=== PATIENT | male | born 1950 | race Caucasian/White ===

== ENCOUNTER 2022-05-06 13:42 | Emergency (ER) | payer MEDICARE, SELFPAY ==
[2022-05-06 13:48] VITALS: BP 150/95; PULSE 83; RESP 18; TEMP 35.9; O2SAT 97; BMI 22.4
--- NOTE | 2022-05-06 13:48 | ED.PSYCH ---
HPI - Psych General Chief Complaint: Psychiatric Symptoms <MYRTLE Vargas - Last Filed: 05/06/22 13:52> Stated Complaint: Depression <MYRTLE Vargas - Last Filed: 05/06/22 13:52> Time Seen by Provider: 05/06/22 14:57 <MYRTLE Vargas Last Filed: 05/06/22 13:52> Source: patient and family () <MYRTLE Doty Last Filed: 05/06/22 17:34> Mode of arrival: ambulatory <MYRTLE Doty - Last Filed: 05/06/22 17:34> Limitations: no limitations <MYRTLE Doty Last Filed: 05/06/22 17:34> History of Present Illness HPI Narrative: Patient is a 71 year old assigned male at with a history of bipolar disorder and major depression presenting to the emergency department today with worsening depression. Patient states that he doesn't currently feel suicidal or homicidal but does feel markedly depressed. Patient states that this happened once before in 2014 and that required admission. Patient denies any dizziness, lightheadedness, abdominal pain, nausea, vomiting, fever, chills, blurry vision, double vision, loss of vision, chest pain, difficulty breathing, shortness of breath, back pain, night sweats, pain with urination, increased urinary frequency, increased urinary urgency, blood in his urine or stool, syncope or a near syncopal episode, recent trauma or falls, bowel incontinence, bladder incontinence, bowel retention, bladder retention, or any other complaints at this time. <MYRTLE Doty - Last Filed: 05/06/22 17:34> MD complaint: feels depressed <MYRTLE Doty - Last Filed: 05/06/22 17:34> Onset (ago): day(s) <MYRTLE Doty Last Filed: 05/06/22 17:34> Duration: constant <MYRTLE Doty Last Filed: 05/06/22 17:34> History of same: Yes <MYRTLE Doty Last Filed: 05/06/22 17:34> Relieving factors: none <MYRTLE Doty Last Filed: 05/06/22 17:34> Exacerbating factors: none <MYRTLE Doty Last Filed: 05/06/22 17:34> Associated psychiatric symptoms: depression <MYRTLE Doty Last Filed: 05/06/22 17:34> Associated symptoms: denies other symptoms <MYRTLE Doty Last Filed: 05/06/22 17:34> Treatments prior to arrival: none <MYRTLE Doty Last Filed: 05/06/22 17:34> Related Data Home Medications: Home Medications Medication Instructions Recorded Confirmed bupropion HCl 150 mg 24 hr tablet, 450 mg PO QAM 05/06/22 05/06/22 extended release ergocalciferol (vitamin D2) 1,250 1,250 mcg PO QWEEK 05/06/22 05/06/22 mcg (50,000 unit) capsule (Vitamin D2) folic acid 1 mg tablet 1 mg PO DAILY 05/06/22 05/06/22 lorazepam 0.5 mg tablet 0.5 mg PO BEDTIME 05/06/22 05/06/22 omeprazole 20 mg capsule,delayed 20 mg PO DAILY 05/06/22 05/06/22 release sertraline 25 mg tablet 25 mg PO DAILY 05/06/22 05/06/22 sildenafil 100 mg tablet 100 mg PO DAILY PRN Erectile 05/06/22 05/06/22 Dysfunction <MYRTLE Vargas - Last Filed: 05/06/22 13:52> Allergies/Adverse Reactions: Allergies Allergy/AdvReac Type Severity Reaction Status Date / Time No Known Allergies Allergy Verified 05/06/22 13:51 [No Known Allergies*] <MYRTLE Vargas - Last Filed: 05/06/22 13:52> Review of Systems Constitutional: Constitutional: Reports no additional constitutional complaints, Denies chills, Denies fever(s) and Denies night sweats <MYRTLE Doty Last Filed: 05/06/22 17:34> Eyes: Eyes: Reports no additional eye complaints, Denies blurry vision, Denies change in vision, Denies diplopia, Denies eye discharge, Denies loss of vision and Denies eye pain <MYRTLE Doty Last Filed: 05/06/22 17:34> ENT: Denies dizziness <MYRTLE Doty - Last Filed: 05/06/22 17:34> Cardiovascular: Cardiovascular: Reports no additional cardiovascular complaints, Denies chest pain, Denies lightheadedness, Denies Loss of Consciousness and Denies dyspnea <MYRTLE Doty - Last Filed: 05/06/22 17:34> Respiratory: Respiratory: Reports no additional respiratory complaints and Denies dyspnea <MYRTLE Doty - Last Filed: 05/06/22 17:34> Gastrointestinal: Gastrointestinal: Reports no additional gastrointestinal complaints, Denies abdominal pain, Denies melena, Denies hematochezia, Denies change in bowel habits and Denies change in stool character <MYRTLE Doty - Last Filed: 05/06/22 17:34> Genitourinary: Genitourinary: Reports no additional male genitourinary complaints, Denies hematuria, Denies oliguria, Denies difficulty urinating, Denies dysuria, Denies urinary frequency, Denies urinary hesitancy, Denies urinary incontinence and Denies urinary urgency <MYRTLE Doty - Last Filed: 05/06/22 17:34> Musculoskeletal: Musculoskeletal: Reports no additional musculoskeletal complaints, Denies numbness and Denies tingling <MYRTLE Doty - Last Filed: 05/06/22 17:34> Neurologic: Denies dizziness, Denies loss of vision, Denies numbness and Denies tingling <MYRTLE Doty - Last Filed: 05/06/22 17:34> Psychiatric: Psychiatric: Reports no additional psychiatric complaints and Reports depression <MYRTLE Doty - Last Filed: 05/06/22 17:34> Endocrine: Endocrine: Reports no additional endocrine complaints <MYRTLE Doty - Last Filed: 05/06/22 17:34> Hematologic/Lymphatic: Hematologic/Lymphatic: Reports no additional hematologic/lymphatic complaints <MYRTLE Doty - Last Filed: 05/06/22 17:34> Allergic/Immunologic: Allergic/Immunologic: Reports no additional allergic/immunologic complaints <MYRTLE Doty - Last Filed: 05/06/22 17:34> PMFSH Past Medical History Attestation statement: The following information was validated with the patient. <MYRTLE Doty - Last Filed: 05/06/22 17:34> Source: old records reviewed, obtained from family (patient's ) and nursing notes reviewed <MYRTLE Doty - Last Filed: 05/06/22 17:34> Social History Social History: Social History Advance Directives: No Advance Directives Information Provided: No Healthcare Proxy: No Guardian: No <MYRTLE Vargas - Last Filed: 05/06/22 13:52> Physical Exam Vital Signs: Vital Signs: Last Vital Signs Temp 96.6 F L 05/06/22 13:48 Pulse 83 05/06/22 13:48 Resp 18 05/06/22 13:48 BP 150/95 H 05/06/22 13:48 Pulse Ox 97 05/06/22 13:48 O2 Del Method Room Air 05/06/22 13:48 BMI result Body Mass Index 22.4 <MYRTLE Vargas - Last Filed: 05/06/22 13:52> Vital Signs: Last Vital Signs Temp 96.6 F L 05/06/22 13:48 Pulse 83 05/06/22 13:48 Resp 18 05/06/22 13:48 BP 150/95 H 05/06/22 13:48 Pulse Ox 97 05/06/22 13:48 O2 Del Method Room Air 05/06/22 13:48 BMI result Body Mass Index 22.4 <MYRTLE Doty - Last Filed: 05/06/22 17:34> Vital Signs: Last Vital Signs Temp 96.6 F L 05/06/22 13:48 Pulse 83 05/06/22 13:48 Resp 18 05/06/22 13:48 BP 150/95 H 05/06/22 13:48 Pulse Ox 97 05/06/22 13:48 O2 Del Method Room Air 05/06/22 13:48 BMI result Body Mass Index 22.4 <Osiel Vazquez MD - Last Filed: 05/06/22 19:57> Const: General: cooperative, no acute distress, alert and awake <MYRTLE Doty - Last Filed: 05/06/22 17:34> Nutritional Appearance: well nourished <MYRTLE Doty - Last Filed: 05/06/22 17:34> Orientation/consciousness: patient oriented x3 <Ryann Wilder AL - Last Filed: 05/06/22 17:34> Limitations: no limitations <Ryann Wilder AL - Last Filed: 05/06/22 17:34> HEENT: Head: Yes normal to inspection and Yes atraumatic <Ryann Wilder AL - Last Filed: 05/06/22 17:34> Ears: hearing grossly normal bilaterally and external ears normal <Ryann Wilder AL - Last Filed: 05/06/22 17:34> General nose exam: Normal external nose present, no nasal discharge noted and no epistaxis <Ryann Wilder AL - Last Filed: 05/06/22 17:34> Face and sinus: Yes normal facial exam, No abrasion and No laceration <Ryann Wilder AL - Last Filed: 05/06/22 17:34> Mouth: Normal oral and palatal mucosa present, no drooling and no muffled voice <Ryann Wilder AL - Last Filed: 05/06/22 17:34> Eyes: General: appearance normal, both eyes and all related structures <Ryann Wilder AL - Last Filed: 05/06/22 17:34> Periorbital: periorbital findings normal <Ryann Wilder AL - Last Filed: 05/06/22 17:34> Eyelids: Yes eyelids normal <Ryann Wilder AL - Last Filed: 05/06/22 17:34> Conjunctivae: conjunctivae normal <Ryann Wilder AL - Last Filed: 05/06/22 17:34> Pupils: Equal, round and reactive pupils present <Ryann Wilder AL - Last Filed: 05/06/22 17:34> EOM: EOMs intact bilaterally <Ryann Briggsmaggie AL - Last Filed: 05/06/22 17:34> Neck: Neck: Yes normal visual inspection, Yes full ROM and Yes no lymphadenopathy <Ryann Wilder AL - Last Filed: 05/06/22 17:34> Chest: Chest palpation & inspection: normal inspection of the chest <Ryannangelique Briggsmaggie AL - Last Filed: 05/06/22 17:34> Resp: Effort & Inspection: normal respiratory effort and able to speak in complete sentences <Ryann Wilder PA - Last Filed: 05/06/22 17:34> GI: Inspection: Yes normal to inspection <Ryann WilderMYRTLE - Last Filed: 05/06/22 17:34> Neuro: General: patient oriented x3 and moves all extremities <Ryann Wilder PA - Last Filed: 05/06/22 17:34> Cranial nerves: Yes Equal, round and reactive pupils present <Ryann Wilder PA - Last Filed: 05/06/22 17:34> Cognition (Neuro): normal cognition <Ryann Wilder PA - Last Filed: 05/06/22 17:34> Motor exam (neuro): 5/5 motor strength present throughout <Ryann Wilder PA - Last Filed: 05/06/22 17:34> Sensory Exam: Normal double simultaneous stimulation for sensation <Ryann Wilder PA - Last Filed: 05/06/22 17:34> Coordination: [id number] test normal <Ryann Wilder PA - Last Filed: 05/06/22 17:34> Extrem: General: Yes normal to inspection, Yes full ROM and Yes capillary refill normal <Ryann Wilder PA - Last Filed: 05/06/22 17:34> Psych: Appearance: grossly normal <Ryann WilderMYRTLE - Last Filed: 05/06/22 17:34> Mental Status: mental status grossly normal <Ryann Wilder PA - Last Filed: 05/06/22 17:34> Affect: normal affect <Ryann BriggsMYRTLE serrano - Last Filed: 05/06/22 17:34> Attitude: cooperative <Ryann Briggsmaggie PA - Last Filed: 05/06/22 17:34> Thought process: Normal thought process present <Ryann Briggsmaggie PA - Last Filed: 05/06/22 17:34> Thought content: Normal thought content present <Ryann BriggsMYRTLE serrano - Last Filed: 05/06/22 17:34> Insight: Good insight present (Psych) <Ryann BriggsMYRTLE serrano - Last Filed: 05/06/22 17:34> Course Course Course Narrative: RME - 71 yo male with history of bipolar disorder, major depression, who presents to the ER from home with his for worsening depression for the last 3 days. He was admitted here to in 2014. He feels similar to that episodes but is denying any suicidal thoughts at this time. He admits to feeling desperate. No drug or alcohol use. PCP manages his depression, has no therapist or psychiatrist. Plan: labs and crisis evaluation <MYRTLE Vargas - Last Filed: 05/06/22 13:52> Reevaluation(s) Reevaluation #1: The patient was evaluated by our care team. The patient is depressed and just wants a medication adjustment. Denied being suicidal or homicidal. At this point he wants to go home and discuss further medical treatment with his provider's therefore the patient was discharged home. Patient's is also with him and according to the care team, his is comfortable with this discharge plan. <Osiel Vazquez MD - Last Filed: 05/06/22 19:57> Time: 19:55 <Osiel Vazquez MD - Last Filed: 05/06/22 19:57> Medical Decision Making Medical Decision Making [facility] Narrative: Patient is a 71 year old assigned male at with a history of bipolar disorder and major depression presenting to the emergency department today with worsening depression. Patient's physical exam was unremarkable. Patient's blood work was unremarkable. I explained my physical exam findings as well as all test results to the patient and the patient's . I answered all questions asked by the patient and the patient's . Patient is pending evaluation by a behavioral health specialist at this time. Patient to remain in the department with disposition pending behavioral health evaluation. <MYRTLE Doty - Last Filed: 05/06/22 17:34> Differential Diagnosis Differential Diagnoses: The differential diagnosis associated with the presentation includes <MYRTLE Doty - Last Filed: 05/06/22 17:34> depression <MYRTLE Doty - Last Filed: 05/06/22 17:34> Lab Data [facility] Lab Attestation statement: I reviewed the patient's lab results. <MYRTLE Doty - Last Filed: 05/06/22 17:34> Result Diagrams: 05/06/22 15:11 05/06/22 15:11 <MYRTLE Vargas - Last Filed: 05/06/22 13:52> Labs: Lab Results 05/06/22 05/06/22 05/06/22 Range/Units 15:05 15:05 15:11 WBC 5.8 (4.8-10.8) X10*3/uL RBC 5.22 (4.60-5.80) X10*6/uL Hgb 15.5 (14.0-18.0) g/dl Hct 47.3 (42.0-52.0) % MCV 90.6 (80.0-98.0) fL MCH 29.7 (27.0-33.0) pg MCHC 32.8 (31.0-36.0) g/dl RDW 13.0 (11.0-16.0) % Plt Count 215 (160-400) X10*3/uL MPV 9.4 (9.4-12.4) fL Immature Gran % (Auto) 0.3 (0.0-0.4) % Neut % (Auto) 63.8 (45-73) % Lymph % (Auto) 23.5 (20-40) % [place] % (Auto) 9.4 (2-11) % Eos % (Auto) 2.1 (0-4) % Baso % (Auto) 0.9 (0-2) % Lymph # (Auto) 1.4 (1.2-4.9) X10*3/uL [place] # (Auto) 0.5 (0.1-1.2) X10*3/uL Eos # (Auto) 0.1 (0.0-0.4) X10*3/uL Baso # (Auto) 0.1 (0.0-0.2) X10*3/uL Abs Immat Gran (auto) 0.02 (0.00-0.03) X10*3/uL Absolute Neuts (auto) 3.7 (2.0-8.3) x10*3/uL Absolute Nucleated RBC 0.000 (0.0-0.012) X10*3/uL Nucleated RBC % (auto) 0.0 (0.0-0.2) /100WBC Sodium (135-145) mmol/L Potassium (3.3-5.1) mmol/L Chloride (96-108) mmol/L Carbon Dioxide (22-29) mmol/L Anion Gap (12-20) BUN (9-16) mg/dL Creatinine (0.5-1.4) mg/dL Estim Creat Clear Calc Estimated GFR Random Glucose (60-115) mg/dL Calcium (8.4-10.2) mg/dL Magnesium (1.6-2.6) mg/dL Total Bilirubin (0.0-1.0) mg/dL Direct Bilirubin (0.0-0.5) mg/dL AST (5-37) U/L ALT (0-40) U/L Alkaline Phosphatase (39-117) U/L Total Protein (6.5-8.0) g/dL Albumin (3.5-5.0) g/dL Urine Color Yellow Urine Appearance Clear Urine pH 7.0 (5.0-9.0) Ur Specific [place] 1.020 (1.005-1.025) Urine Protein 30 (1+) H (Neg-Trace) mg/dL Urine Glucose (UA) Negative (Negative) mg/dL Urine Ketones 40 (Negative) mg/dL Urine Blood Negative (Negative) Urine Nitrite Negative (Negative) Ur Leukocyte Esterase Trace H (Negative) Urine RBC 0-2 (0-2) /HPF Urine WBC 0-5 (0-5) /HPF Ur Squamous Epith Cells 0-2 (0-2) /HPF Urine Bacteria None Seen (None Seen) Hyaline Casts 0-2 (0-2) /LPF Urine Opiates Screen Not Detected (Not Detect) Urine Fentanyl Screen Not Detected (Not Detect) Ur Barbiturates Screen Not Detected (Not Detect) Ur Phencyclidine Scrn Not Detected (Not Detect) Ur Amphetamines Screen Not Detected (Not Detect) U Benzodiazepines Scrn Not Detected (Not Detect) Urine Cocaine Screen Not Detected (Not Detect) U Marijuana (THC) Screen POSITIVE H (Not Detect) Ethyl Alcohol mg/dL COVID-19 (JULY) (Negative) COVID-19 Clin Com 05/06/22 05/06/22 Range/Units 15:11 15:11 WBC (4.8-10.8) X10*3/uL RBC (4.60-5.80) X10*6/uL Hgb (14.0-18.0) g/dl Hct (42.0-52.0) % MCV (80.0-98.0) fL MCH (27.0-33.0) pg MCHC (31.0-36.0) g/dl RDW (11.0-16.0) % Plt Count (160-400) X10*3/uL MPV (9.4-12.4) fL Immature Gran % (Auto) (0.0-0.4) % Neut % (Auto) (45-73) % Lymph % (Auto) (20-40) % [place] % (Auto) (2-11) % Eos % (Auto) (0-4) % Baso % (Auto) (0-2) % Lymph # (Auto) (1.2-4.9) X10*3/uL [place] # (Auto) (0.1-1.2) X10*3/uL Eos # (Auto) (0.0-0.4) X10*3/uL Baso # (Auto) (0.0-0.2) X10*3/uL Abs Immat Gran (auto) (0.00-0.03) X10*3/uL Absolute Neuts (auto) (2.0-8.3) x10*3/uL Absolute Nucleated RBC (0.0-0.012) X10*3/uL Nucleated RBC % (auto) (0.0-0.2) /100WBC Sodium 141 (135-145) mmol/L Potassium 4.4 (3.3-5.1) mmol/L Chloride 105 (96-108) mmol/L Carbon Dioxide 26 (22-29) mmol/L Anion Gap 14 (12-20) BUN 13 (9-16) mg/dL Creatinine 0.99 (0.5-1.4) mg/dL Estim Creat Clear Calc 74.6 Estimated GFR > 60 Random Glucose 86 (60-115) mg/dL Calcium 9.5 (8.4-10.2) mg/dL Magnesium 2.0 (1.6-2.6) mg/dL Total Bilirubin 1.5 H (0.0-1.0) mg/dL Direct Bilirubin 0.3 (0.0-0.5) mg/dL AST 22 (5-37) U/L ALT 26 (0-40) U/L Alkaline Phosphatase 64 (39-117) U/L Total Protein 6.9 (6.5-8.0) g/dL Albumin 4.5 (3.5-5.0) g/dL Urine Color Urine Appearance Urine pH (5.0-9.0) Ur Specific [place] (1.005-1.025) Urine Protein (Neg-Trace) mg/dL Urine Glucose (UA) (Negative) mg/dL Urine Ketones (Negative) mg/dL Urine Blood (Negative) Urine Nitrite (Negative) Ur Leukocyte Esterase (Negative) Urine RBC (0-2) /HPF Urine WBC (0-5) /HPF Ur Squamous Epith Cells (0-2) /HPF Urine Bacteria (None Seen) Hyaline Casts (0-2) /LPF Urine Opiates Screen (Not Detect) Urine Fentanyl Screen (Not Detect) Ur Barbiturates Screen (Not Detect) Ur Phencyclidine Scrn (Not Detect) Ur Amphetamines Screen (Not Detect) U Benzodiazepines Scrn (Not Detect) Urine Cocaine Screen (Not Detect) U Marijuana (THC) Screen (Not Detect) Ethyl Alcohol < 10 mg/dL COVID-19 (JULY) Negative (Negative) COVID-19 Clin Com See Note <MYRTLE Vargas - Last Filed: 05/06/22 13:52> Lab Results 05/06/22 05/06/22 05/06/22 Range/Units 15:05 15:05 15:11 WBC 5.8 (4.8-10.8) X10*3/uL RBC 5.22 (4.60-5.80) X10*6/uL Hgb 15.5 (14.0-18.0) g/dl Hct 47.3 (42.0-52.0) % MCV 90.6 (80.0-98.0) fL MCH 29.7 (27.0-33.0) pg MCHC 32.8 (31.0-36.0) g/dl RDW 13.0 (11.0-16.0) % Plt Count 215 (160-400) X10*3/uL MPV 9.4 (9.4-12.4) fL Immature Gran % (Auto) 0.3 (0.0-0.4) % Neut % (Auto) 63.8 (45-73) % Lymph % (Auto) 23.5 (20-40) % [place] % (Auto) 9.4 (2-11) % Eos % (Auto) 2.1 (0-4) % Baso % (Auto) 0.9 (0-2) % Lymph # (Auto) 1.4 (1.2-4.9) X10*3/uL [place] # (Auto) 0.5 (0.1-1.2) X10*3/uL Eos # (Auto) 0.1 (0.0-0.4) X10*3/uL Baso # (Auto) 0.1 (0.0-0.2) X10*3/uL Abs Immat Gran (auto) 0.02 (0.00-0.03) X10*3/uL Absolute Neuts (auto) 3.7 (2.0-8.3) x10*3/uL Absolute Nucleated RBC 0.000 (0.0-0.012) X10*3/uL Nucleated RBC % (auto) 0.0 (0.0-0.2) /100WBC Sodium (135-145) mmol/L Potassium (3.3-5.1) mmol/L Chloride (96-108) mmol/L Carbon Dioxide (22-29) mmol/L Anion Gap (12-20) BUN (9-16) mg/dL Creatinine (0.5-1.4) mg/dL Estim Creat Clear Calc Estimated GFR Random Glucose (60-115) mg/dL Calcium (8.4-10.2) mg/dL Magnesium (1.6-2.6) mg/dL Total Bilirubin (0.0-1.0) mg/dL Direct Bilirubin (0.0-0.5) mg/dL AST (5-37) U/L ALT (0-40) U/L Alkaline Phosphatase (39-117) U/L Total Protein (6.5-8.0) g/dL Albumin (3.5-5.0) g/dL Urine Color Yellow Urine Appearance Clear Urine pH 7.0 (5.0-9.0) Ur Specific [place] 1.020 (1.005-1.025) Urine Protein 30 (1+) H (Neg-Trace) mg/dL Urine Glucose (UA) Negative (Negative) mg/dL Urine Ketones 40 (Negative) mg/dL Urine Blood Negative (Negative) Urine Nitrite Negative (Negative) Ur Leukocyte Esterase Trace H (Negative) Urine RBC 0-2 (0-2) /HPF Urine WBC 0-5 (0-5) /HPF Ur Squamous Epith Cells 0-2 (0-2) /HPF Urine Bacteria None Seen (None Seen) Hyaline Casts 0-2 (0-2) /LPF Urine Opiates Screen Not Detected (Not Detect) Urine Fentanyl Screen Not Detected (Not Detect) Ur Barbiturates Screen Not Detected (Not Detect) Ur Phencyclidine Scrn Not Detected (Not Detect) Ur Amphetamines Screen Not Detected (Not Detect) U Benzodiazepines Scrn Not Detected (Not Detect) Urine Cocaine Screen Not Detected (Not Detect) U Marijuana (THC) Screen POSITIVE H (Not Detect) Ethyl Alcohol mg/dL COVID-19 (JULY) (Negative) COVID-19 Clin Com 05/06/22 05/06/22 Range/Units 15:11 15:11 WBC (4.8-10.8) X10*3/uL RBC (4.60-5.80) X10*6/uL Hgb (14.0-18.0) g/dl Hct (42.0-52.0) % MCV (80.0-98.0) fL MCH (27.0-33.0) pg MCHC (31.0-36.0) g/dl RDW (11.0-16.0) % Plt Count (160-400) X10*3/uL MPV (9.4-12.4) fL Immature Gran % (Auto) (0.0-0.4) % Neut % (Auto) (45-73) % Lymph % (Auto) (20-40) % [place] % (Auto) (2-11) % Eos % (Auto) (0-4) % Baso % (Auto) (0-2) % Lymph # (Auto) (1.2-4.9) X10*3/uL [place] # (Auto) (0.1-1.2) X10*3/uL Eos # (Auto) (0.0-0.4) X10*3/uL Baso # (Auto) (0.0-0.2) X10*3/uL Abs Immat Gran (auto) (0.00-0.03) X10*3/uL Absolute Neuts (auto) (2.0-8.3) x10*3/uL Absolute Nucleated RBC (0.0-0.012) X10*3/uL Nucleated RBC % (auto) (0.0-0.2) /100WBC Sodium 141 (135-145) mmol/L Potassium 4.4 (3.3-5.1) mmol/L Chloride 105 (96-108) mmol/L Carbon Dioxide 26 (22-29) mmol/L Anion Gap 14 (12-20) BUN 13 (9-16) mg/dL Creatinine 0.99 (0.5-1.4) mg/dL Estim Creat Clear Calc 74.6 Estimated GFR > 60 Random Glucose 86 (60-115) mg/dL Calcium 9.5 (8.4-10.2) mg/dL Magnesium 2.0 (1.6-2.6) mg/dL Total Bilirubin 1.5 H (0.0-1.0) mg/dL Direct Bilirubin 0.3 (0.0-0.5) mg/dL AST 22 (5-37) U/L ALT 26 (0-40) U/L Alkaline Phosphatase 64 (39-117) U/L Total Protein 6.9 (6.5-8.0) g/dL Albumin 4.5 (3.5-5.0) g/dL Urine Color Urine Appearance Urine pH (5.0-9.0) Ur Specific [place] (1.005-1.025) Urine Protein (Neg-Trace) mg/dL Urine Glucose (UA) (Negative) mg/dL Urine Ketones (Negative) mg/dL Urine Blood (Negative) Urine Nitrite (Negative) Ur Leukocyte Esterase (Negative) Urine RBC (0-2) /HPF Urine WBC (0-5) /HPF Ur Squamous Epith Cells (0-2) /HPF Urine Bacteria (None Seen) Hyaline Casts (0-2) /LPF Urine Opiates Screen (Not Detect) Urine Fentanyl Screen (Not Detect) Ur Barbiturates Screen (Not Detect) Ur Phencyclidine Scrn (Not Detect) Ur Amphetamines Screen (Not Detect) U Benzodiazepines Scrn (Not Detect) Urine Cocaine Screen (Not Detect) U Marijuana (THC) Screen (Not Detect) Ethyl Alcohol < 10 mg/dL COVID-19 (JULY) Negative (Negative) COVID-19 Clin Com See Note <MYRTLE Doty - Last Filed: 05/06/22 17:34> Lab Results 05/06/22 05/06/22 05/06/22 Range/Units 15:05 15:05 15:11 WBC 5.8 (4.8-10.8) X10*3/uL RBC 5.22 (4.60-5.80) X10*6/uL Hgb 15.5 (14.0-18.0) g/dl Hct 47.3 (42.0-52.0) % MCV 90.6 (80.0-98.0) fL MCH 29.7 (27.0-33.0) pg MCHC 32.8 (31.0-36.0) g/dl RDW 13.0 (11.0-16.0) % Plt Count 215 (160-400) X10*3/uL MPV 9.4 (9.4-12.4) fL Immature Gran % (Auto) 0.3 (0.0-0.4) % Neut % (Auto) 63.8 (45-73) % Lymph % (Auto) 23.5 (20-40) % [place] % (Auto) 9.4 (2-11) % Eos % (Auto) 2.1 (0-4) % Baso % (Auto) 0.9 (0-2) % Lymph # (Auto) 1.4 (1.2-4.9) X10*3/uL [place] # (Auto) 0.5 (0.1-1.2) X10*3/uL Eos # (Auto) 0.1 (0.0-0.4) X10*3/uL Baso # (Auto) 0.1 (0.0-0.2) X10*3/uL Abs Immat Gran (auto) 0.02 (0.00-0.03) X10*3/uL Absolute Neuts (auto) 3.7 (2.0-8.3) x10*3/uL Absolute Nucleated RBC 0.000 (0.0-0.012) X10*3/uL Nucleated RBC % (auto) 0.0 (0.0-0.2) /100WBC Sodium (135-145) mmol/L Potassium (3.3-5.1) mmol/L Chloride (96-108) mmol/L Carbon Dioxide (22-29) mmol/L Anion Gap (12-20) BUN (9-16) mg/dL Creatinine (0.5-1.4) mg/dL Estim Creat Clear Calc Estimated GFR Random Glucose (60-115) mg/dL Calcium (8.4-10.2) mg/dL Magnesium (1.6-2.6) mg/dL Total Bilirubin (0.0-1.0) mg/dL Direct Bilirubin (0.0-0.5) mg/dL AST (5-37) U/L ALT (0-40) U/L Alkaline Phosphatase (39-117) U/L Total Protein (6.5-8.0) g/dL Albumin (3.5-5.0) g/dL Urine Color Yellow Urine Appearance Clear Urine pH 7.0 (5.0-9.0) Ur Specific [place] 1.020 (1.005-1.025) Urine Protein 30 (1+) H (Neg-Trace) mg/dL Urine Glucose (UA) Negative (Negative) mg/dL Urine Ketones 40 (Negative) mg/dL Urine Blood Negative (Negative) Urine Nitrite Negative (Negative) Ur Leukocyte Esterase Trace H (Negative) Urine RBC 0-2 (0-2) /HPF Urine WBC 0-5 (0-5) /HPF Ur Squamous Epith Cells 0-2 (0-2) /HPF Urine Bacteria None Seen (None Seen) Hyaline Casts 0-2 (0-2) /LPF Urine Opiates Screen Not Detected (Not Detect) Urine Fentanyl Screen Not Detected (Not Detect) Ur Barbiturates Screen Not Detected (Not Detect) Ur Phencyclidine Scrn Not Detected (Not Detect) Ur Amphetamines Screen Not Detected (Not Detect) U Benzodiazepines Scrn Not Detected (Not Detect) Urine Cocaine Screen Not Detected (Not Detect) U Marijuana (THC) Screen POSITIVE H (Not Detect) Ethyl Alcohol mg/dL COVID-19 (JULY) (Negative) COVID-19 Clin Com 05/06/22 05/06/22 Range/Units 15:11 15:11 WBC (4.8-10.8) X10*3/uL RBC (4.60-5.80) X10*6/uL Hgb (14.0-18.0) g/dl Hct (42.0-52.0) % MCV (80.0-98.0) fL MCH (27.0-33.0) pg MCHC (31.0-36.0) g/dl RDW (11.0-16.0) % Plt Count (160-400) X10*3/uL MPV (9.4-12.4) fL Immature Gran % (Auto) (0.0-0.4) % Neut % (Auto) (45-73) % Lymph % (Auto) (20-40) % [place] % (Auto) (2-11) % Eos % (Auto) (0-4) % Baso % (Auto) (0-2) % Lymph # (Auto) (1.2-4.9) X10*3/uL [place] # (Auto) (0.1-1.2) X10*3/uL Eos # (Auto) (0.0-0.4) X10*3/uL Baso # (Auto) (0.0-0.2) X10*3/uL Abs Immat Gran (auto) (0.00-0.03) X10*3/uL Absolute Neuts (auto) (2.0-8.3) x10*3/uL Absolute Nucleated RBC (0.0-0.012) X10*3/uL Nucleated RBC % (auto) (0.0-0.2) /100WBC Sodium 141 (135-145) mmol/L Potassium 4.4 (3.3-5.1) mmol/L Chloride 105 (96-108) mmol/L Carbon Dioxide 26 (22-29) mmol/L Anion Gap 14 (12-20) BUN 13 (9-16) mg/dL Creatinine 0.99 (0.5-1.4) mg/dL Estim Creat Clear Calc 74.6 Estimated GFR > 60 Random Glucose 86 (60-115) mg/dL Calcium 9.5 (8.4-10.2) mg/dL Magnesium 2.0 (1.6-2.6) mg/dL Total Bilirubin 1.5 H (0.0-1.0) mg/dL Direct Bilirubin 0.3 (0.0-0.5) mg/dL AST 22 (5-37) U/L ALT 26 (0-40) U/L Alkaline Phosphatase 64 (39-117) U/L Total Protein 6.9 (6.5-8.0) g/dL Albumin 4.5 (3.5-5.0) g/dL Urine Color Urine Appearance Urine pH (5.0-9.0) Ur Specific [place] (1.005-1.025) Urine Protein (Neg-Trace) mg/dL Urine Glucose (UA) (Negative) mg/dL Urine Ketones (Negative) mg/dL Urine Blood (Negative) Urine Nitrite (Negative) Ur Leukocyte Esterase (Negative) Urine RBC (0-2) /HPF Urine WBC (0-5) /HPF Ur Squamous Epith Cells (0-2) /HPF Urine Bacteria (None Seen) Hyaline Casts (0-2) /LPF Urine Opiates Screen (Not Detect) Urine Fentanyl Screen (Not Detect) Ur Barbiturates Screen (Not Detect) Ur Phencyclidine Scrn (Not Detect) Ur Amphetamines Screen (Not Detect) U Benzodiazepines Scrn (Not Detect) Urine Cocaine Screen (Not Detect) U Marijuana (THC) Screen (Not Detect) Ethyl Alcohol < 10 mg/dL COVID-19 (JULY) Negative (Negative) COVID-19 Clin Com See Note <Osiel Vazquez MD - Last Filed: 05/06/22 19:57> Independent Historian Clinical information obtained from an independent historian. History obtained from or confirmed by: Spouse () <MYRTLE Doty - Last Filed: 05/06/22 17:34> Critical Care Time Critical Care Time Critical Care Time: Yes <MYRTLE Doty - Last Filed: 05/06/22 17:34> Total Critical Care Time: 30 <MYRTLE Doty - Last Filed: 05/06/22 17:34> Attestation: I spent 30 minutes of Critical Care Time with this patient. This does not include time spent on separately reported billable procedures. <MYRTLE Doty - Last Filed: 05/06/22 17:34> Discharge Plan Discharge Clinical Impression: Depression <MYRTLE Vargas - Last Filed: 05/06/22 13:52> Patient Disposition: Home, Self-Care <MYRTLE Vargas - Last Filed: 05/06/22 13:52> Instructions: Depression (ED) <MYRTLE Vargas - Last Filed: 05/06/22 13:52> Additional Instructions: Your evaluated by our care team. Please follow their instructions. Continue taking medications as prescribed by your providers Follow-up with your doctor in 2 days or soon as possible to discuss adjusting your medications.. Please return to the emergency department if your symptoms get worse or if you develop any symptoms that are concerning to you. <MYRTLE Vargas - Last Filed: 05/06/22 13:52> Prescriptions: No Action sildenafil 100 mg tablet 100 mg PO DAILY PRN (Reason: Erectile Dysfunction) lorazepam 0.5 mg tablet 0.5 mg PO BEDTIME sertraline 25 mg tablet 25 mg PO DAILY omeprazole 20 mg capsule,delayed release(DR/EC) 20 mg PO DAILY folic acid 1 mg tablet 1 mg PO DAILY ergocalciferol (vitamin D2) [Vitamin D2] 1,250 mcg (50,000 unit) capsule 1,250 mcg PO QWEEK bupropion HCl 150 mg tablet extended release 24 hr 450 mg PO QAM <MYRTLE Vargas - Last Filed: 05/06/22 13:52> Interventions: [place]-Suicide Risk Severity Scale Last Done: 05/06/22 13:51 <MYRTLE Vargas - Last Filed: 05/06/22 13:52>
[2022-05-06 15:19] LABS: MANUAL DIFF FLAG NO
[2022-05-06 15:21] LABS: Basophils Absolute Auto 0.1 X10*3/uL (0.0-0.2); Basophils Percent Auto 0.9 % (0-2); Eosinophils Absolute Auto 0.1 X10*3/uL (0.0-0.4); Eosinophils Percent Auto 2.1 % (0-4); Hematocrit 47.3 % (42.0-52.0); Hemoglobin 15.5 g/dl (14.0-18.0); Imm Gran Abs Auto 0.02 X10*3/uL (0.00-0.03); Imm Gran Pct Auto 0.3 % (0.0-0.4); Lymphocytes Absolute Auto 1.4 X10*3/uL (1.2-4.9); Lymphocytes Percent Auto 23.5 % (20-40); Mean Corpuscular HGB Conc 32.8 g/dl (31.0-36.0); Mean Corpuscular Hemoglobin 29.7 pg (27.0-33.0); Mean Corpuscular Volume 90.6 fL (80.0-98.0); Mean Platelet Volume 9.4 fL (9.4-12.4); Monocytes Absolute Auto 0.5 X10*3/uL (0.1-1.2); Monocytes Percent Auto 9.4 % (2-11); Neutrophils Absolute Auto 3.7 x10*3/uL (2.0-8.3); Neutrophils Percent Auto 63.8 % (45-73); Platelet Count 215 X10*3/uL (160-400); Red Blood Count 5.22 X10*6/uL (4.60-5.80); White Blood Count 5.8 X10*3/uL (4.8-10.8)
[2022-05-06 15:24] LABS: Appearance Urine Clear; Color Urine Yellow; Glucose Urine UA Negative (Negative); Leukocyte Esterase Urine Trace (Negative); Nitrite Urine Negative (Negative); UMIC TRIGGER UACC YES; Urine Blood Negative (Negative); Urine Ketones 40 mg/dL (Negative); Urine Protein 30 (1+) mg/dL (Neg-Trace)
[2022-05-06 15:29] LABS: Bacteria Urine None Seen (None Seen); Hyaline Casts Urine 0-2 /LPF (0-2); RBC Urine 0-2 /HPF (0-2); Squamous Epithelial Cell Urine 0-2 /HPF (0-2); WBC Urine 0-5 /HPF (0-5)
[2022-05-06 15:34] LABS: Amphetamine Screen Urine Not Detected (Not Detect); Barbiturates, Urine Not Detected (Not Detect); Benzodiazepines Screen Urine Not Detected (Not Detect); Cannabinoid Screen Urine POSITIVE (Not Detect); Cocaine Screen Urine Not Detected (Not Detect); Fentanyl, urine Not Detected (Not Detect); Opiate Screen Urine Not Detected (Not Detect); Phencyclidine Screen Urine Not Detected (Not Detect)
[2022-05-06 15:37] LABS: COVID-19 Test Negative (Negative); IDNOW Serial# BCCEAD1C
[2022-05-06 15:42] LABS: Alanine Aminotransferase 26 U/L (0-40); Albumin Level 4.5 g/dL (3.5-5.0); Alkaline Phosphatase 64 U/L (39-117); Anion Gap 14 (12-20); Aspartate Amino Transferase 22 U/L (5-37); Bilirubin Direct 0.3 mg/dL (0.0-0.5); Bilirubin Total 1.5 mg/dL (0.0-1.0); Blood Urea Nitrogen 13 mg/dL (9-16); Calcium 9.5 mg/dL (8.4-10.2); Carbon Dioxide 26 mmol/L (22-29); Chloride 105 mmol/L (96-108); Creatinine Clr Calc Pharmacy 74.6; Estimated Glomerular Filt Rate > 60; Ethanol < 10 mg/dL; Glucose Random 86 mg/dL (60-115); Potassium 4.4 mmol/L (3.3-5.1); Sodium 141 mmol/L (135-145); Total Protein 6.9 g/dL (6.5-8.0)
--- NOTE | 2022-05-07 09:26 | MHC.CARE ---
CARE Team completed follow up call.
== END 2022-05-06 20:14 | disposition home or self-care (01) ==
PROVIDERS: Physician Assistant; Emergency Provider Emergency Medicine Emergency Medical Services; PCP Nurse Practitioner Family
DX: F33.1 Major depressive disorder, recurrent, moderate (principal); Z20.822 Contact with and (suspected) exposure to COVID-19; Z20.828 Contact with and (suspected) exposure to other viral communicable diseases; Z79.899 Other long term (current) drug therapy
CPT/HCPCS: 80048; 80076; 80307; 81001; 82077; 83735; 85025; 87635; 99284

== ENCOUNTER 2022-10-23 14:40 | Emergency (ER) | payer MEDICARE, SELFPAY ==
--- NOTE | ~2022-10-23 | XR_ITS ---
EXAMINATION: XR HAND, LEFT CLINICAL INFORMATION: Laceration to second MCP joint. COMPARISON: None available. TECHNIQUE: PA, lateral, and oblique views of the left hand. FINDINGS: Alignment is anatomic. There is joint space narrowing at the third MCP joint. No displaced fracture or dislocation. Tiny round calcification is seen within the soft tissues of the distal fourth digit. There is a linear radiodensity measuring 1 mm at the second MCP joint possibly a retained foreign body. There is associated soft tissue swelling. There is a linear radiodensity measuring 6 mm in the volar soft tissues of the fifth digit. There is a linear 7 mm radiodensity is seen at the volar aspect of the distal forearm. XR/XR hand LT min 3V IMPRESSION: 1 mm linear radiodensity at the second MCP joint possibly retained foreign body. There is associated soft tissue swelling.
[2022-10-23 15:36] VITALS: BP 128/87; PULSE 95; RESP 20; TEMP 36.4; O2SAT 95; BMI 24.1
--- NOTE | 2022-10-23 15:36 | ED_ITS ---
HPI - General Adult General Chief complaint: Wound/Laceration Stated complaint: needs stiches Related Data Home Medications Medication Instructions Recorded Confirmed bupropion HCl 150 mg 24 hr tablet, 450 mg PO QAM 05/06/22 05/06/22 extended release ergocalciferol (vitamin D2) 1,250 1,250 mcg PO QWEEK 05/06/22 05/06/22 mcg (50,000 unit) capsule (Vitamin D2) folic acid 1 mg tablet 1 mg PO DAILY 05/06/22 05/06/22 lorazepam 0.5 mg tablet 0.5 mg PO BEDTIME 05/06/22 05/06/22 omeprazole 20 mg capsule,delayed 20 mg PO DAILY 05/06/22 05/06/22 release sertraline 25 mg tablet 25 mg PO DAILY 05/06/22 05/06/22 sildenafil 100 mg tablet 100 mg PO DAILY PRN Erectile 05/06/22 05/06/22 Dysfunction Allergies Allergy/AdvReac Type Severity Reaction Status Date / Time No Known Allergies Allergy Verified 05/06/22 13:51 [No Known Allergies*] [facility] Social History Social History Smoked in Last 30 Days: No Advance Directives: No Advance Directives Information Provided: No Physical Exam ED Vital Signs: BMI result Body Mass Index 24.1 Course Course Course Narrative: This is a rapid medical exam: Additional HPI, ROS, PE not included below will be deferred to primary provider. Patient is a 72-year-old right-hand dominant male presenting to the emergency department with laceration to left hand over 2nd MCP joint five days ago. States he was using a knife to cut some candle wax off another item at work. Unsure of last tetanus shot. Wound is draining purulent fluid, surrounding erythema. Plan: Tdap, x-ray 10/28/2022 12:29 Telephone call placed to patient as x-ray shows likely FB. Patient states symptoms have improved and denies signs or symptoms of infection. Patient encouraged to return to the ED if these occur. Medications Administered Discontinued Medications Generic Name Dose Route Start Last Admin Trade Name Freq PRN Reason Stop Dose Admin Diphtheria/Tetanus/Acell Pertussis 0.5 ml 10/23/22 15:39 10/23/22 18:06 Diphth,Pertus(Acell),Tet Adult 0.5 Ml Syringe IM 10/23/22 15:40 0.5 ml .ONCE ONE Administration Discharge Plan Discharge Clinical Impression: Laceration Patient Disposition: Left W/O Completing Treatment Prescriptions: No Action sildenafil 100 mg tablet 100 mg PO DAILY PRN (Reason: Erectile Dysfunction) lorazepam 0.5 mg tablet 0.5 mg PO BEDTIME sertraline 25 mg tablet 25 mg PO DAILY omeprazole 20 mg capsule,delayed release(DR/EC) 20 mg PO DAILY folic acid 1 mg tablet 1 mg PO DAILY ergocalciferol (vitamin D2) [Vitamin D2] 1,250 mcg (50,000 unit) capsule 1,250 mcg PO QWEEK bupropion HCl 150 mg tablet extended release 24 hr 450 mg PO QAM Interventions: ED Discharge Assessment Last Done: 10/23/22 19:57 Discharge Date/Time: 10/23/22 19:59
[2022-10-23] MEDS: Diphth,Pertus(ACell),Tet Adult 0.5 ML SYRINGE IM (18:06)
== END 2022-10-23 19:59 | disposition left against medical advice (07) ==
PROVIDERS: Emergency Provider Emergency Medicine
DX: S61.412A Laceration without foreign body of left hand, initial encounter (principal); W26.0XXA Contact with knife, initial encounter; Y93.89 Activity, other specified; Y92.9 Unspecified place or not applicable; Y99.0 Civilian activity done for income or pay
CPT/HCPCS: 73130; 90471; 90715; 99283; 99284

== ENCOUNTER 2022-11-30 08:57 | Emergency (ER) | payer MEDICARE, SELFPAY ==
[2022-11-30 09:15] VITALS: BP 143/98; PULSE 95; RESP 16; TEMP 36.6; O2SAT 98; BMI 27.0
[2022-11-30 09:39] LABS: MANUAL DIFF FLAG NO
[2022-11-30 09:43] LABS: Appearance Urine Clear; Color Urine Dark Yellow; Glucose Urine UA Negative (Negative); Leukocyte Esterase Urine Trace (Negative); Nitrite Urine Negative (Negative); UMIC TRIGGER UACC YES; Urine Blood Negative (Negative); Urine Ketones Trace mg/dL (Negative); Urine Protein Negative (Neg-Trace)
[2022-11-30 09:45] LABS: Basophils Percent Auto 0.8 % (0-2); Eosinophils Absolute Auto 0.1 X10*3/uL (0.0-0.4); Eosinophils Percent Auto 1.9 % (0-4); Hematocrit 50.4 % (42.0-52.0); Hemoglobin 16.4 g/dl (14.0-18.0); Imm Gran Abs Auto 0.01 X10*3/uL (0.00-0.03); Imm Gran Pct Auto 0.2 % (0.0-0.4); Lymphocytes Absolute Auto 1.1 X10*3/uL (1.2-4.9); Lymphocytes Percent Auto 20.9 % (20-40); Mean Corpuscular HGB Conc 32.5 g/dl (31.0-36.0); Mean Corpuscular Hemoglobin 29.8 pg (27.0-33.0); Mean Corpuscular Volume 91.5 fL (80.0-98.0); Mean Platelet Volume 9.5 fL (9.4-12.4); Monocytes Absolute Auto 0.5 X10*3/uL (0.1-1.2); Monocytes Percent Auto 9.4 % (2-11); Neutrophils Absolute Auto 3.4 x10*3/uL (2.0-8.3); Neutrophils Percent Auto 66.8 % (45-73); Platelet Count 261 X10*3/uL (160-400); Red Blood Count 5.51 X10*6/uL (4.60-5.80); Red Cell Distribution Width 13.2 % (11.0-16.0); White Blood Count 5.1 X10*3/uL (4.8-10.8)
[2022-11-30 09:46] LABS: Bacteria Urine None Seen (None Seen); Hyaline Casts Urine 0-2 /LPF (0-2); RBC Urine 0-2 /HPF (0-2); Squamous Epithelial Cell Urine 0-2 /HPF (0-2); WBC Urine 0-5 /HPF (0-5)
[2022-11-30 09:55] LABS: Anion Gap 15 (12-20); Blood Urea Nitrogen 12 mg/dL (9-16); Calcium 9.9 mg/dL (8.4-10.2); Carbon Dioxide 27 mmol/L (22-29); Chloride 103 mmol/L (96-108); Creatinine Clr Calc Pharmacy 69.7; Estimated Glomerular Filt Rate > 60; Glucose Random 127 mg/dL (60-115); Potassium 4.6 mmol/L (3.3-5.1); Sodium 140 mmol/L (135-145)
[2022-11-30 09:57] LABS: Amphetamine Screen Urine Not Detected (Not Detect); Barbiturates, Urine Not Detected (Not Detect); Benzodiazepines Screen Urine Not Detected (Not Detect); Cannabinoid Screen Urine POSITIVE (Not Detect); Cocaine Screen Urine Not Detected (Not Detect); Fentanyl, urine Not Detected (Not Detect); Opiate Screen Urine Not Detected (Not Detect); Phencyclidine Screen Urine Not Detected (Not Detect)
== END 2022-11-30 13:48 | disposition left against medical advice (07) ==
PROVIDERS: Emergency Provider Emergency Medicine; PCP Nurse Practitioner Family
DX: F33.1 Major depressive disorder, recurrent, moderate (principal); Z79.899 Other long term (current) drug therapy
CPT/HCPCS: 36415; 80048; 80307; 81001; 85025; 99283

== ENCOUNTER 2024-06-15 08:28 | Observation (INO) | payer MEDICARE, SELFPAY ==
[2024-06-15] VITALS (7 sets, daily range): BP systolic 116–170; BP diastolic 65–98; PULSE 73–89; RESP 12–18; TEMP 36.1–36.5; O2SAT 96–98; BMI 21.9
--- NOTE | ~2024-06-15 | CT_ITS ---
EXAMINATION: CT ABDOMEN AND PELVIS WITH CONTRAST CLINICAL INFORMATION: Concern for obstruction, constipation. COMPARISON: None available. TECHNIQUE: Multidetector volumetric images were obtained from the superior aspect of the liver through the pubic symphysis following administration 85 mL of Omnipaque 350 intravenous contrast. Sagittal and coronal reformatted images were obtained on the technologist's workstation. Oral contrast: Yes This CT examination was performed using dose optimization techniques as appropriate, variously including the following: *Automated exposure control *Adjustment of mA and/or kV according to patient size (this includes techniques or standardized protocols for targeted exams where dose is matched to indication/reason for exam; i.e. extremities or head) *Use of iterative reconstruction technique FINDINGS: LUNG BASES: There is a moderate-sized paraesophageal hiatus hernia. There is reticular atelectasis/scarring in the subpleural left lower lobe and to a lesser degree subpleural right lower lobe. Lung bases otherwise clear. No effusions. LIVER, GALLBLADDER, AND BILIARY TREE: The liver is normal in size, shape, and attenuation. There are tiny cysts in segment 8 and 4A. No biliary ductal dilatation is present. The gallbladder is unremarkable with no evidence of radiopaque gallstones, gallbladder wall thickening, or obvious pericholecystic inflammatory changes. PANCREAS: Unremarkable. SPLEEN: Unremarkable. ADRENAL GLANDS: Unremarkable. KIDNEYS AND URETERS: There are bilateral renal cysts present, the largest in the left upper pole measuring 5.8 cm in diameter. No hydronephrosis of either kidney. There are 2 nonobstructing calculi in the right kidney mid and lower pole, larger measuring 9 mm, smaller measuring 3 mm. There is a 3 mm nonobstructing calculus in the inferior pole of the left kidney. There are no renal masses identified. There is no ureteral dilatation. BLADDER: Distended, and diffusely thick-walled, findings consistent with cystitis, chronic elevated obstruction, or possibly neurogenic bladder. The median lobe of the prostate protrudes significantly into the bladder base. GASTROINTESTINAL TRACT: There is no bowel obstruction. There is extensive fecal material seen throughout the colon and distending the rectum. There is a rectal stool ball present measuring 7.8 x 7.7 x 9.4 cm. No rectal wall thickening. The colon demonstrates no definitive wall thickening or inflammation. A normal appendix is visualized. The small bowel is normal in caliber and course. No wall thickening or inflammation. ABDOMINAL WALL: There is a small fat-containing umbilical hernia. LYMPH NODES: None enlarged by size criteria. VASCULAR: Moderate atheromatous calcification of the aorta, iliac arteries, and branches, without evidence of aneurysm. No venous thrombosis. PELVIC VISCERA: Massive enlargement of the prostate, measuring 6.9 cm in diameter. Protrusion of the median lobe into the bladder base. Irregular enhancement pattern, nonspecific.. OSSEOUS STRUCTURES: There are advanced degenerative changes throughout the spine and SI joints. There is partial ankylosis of both SI joints. There are mild to moderate degenerative changes in both hip joints. No suspicious lytic or blastic bone lesion. CT/CT abdomen pelvis w IV con IMPRESSION: 1. Moderate to severe constipation. No definite bowel obstruction identified. 2. Massive enlargement of the prostate gland, measuring up to 6.9 cm in diameter, with protrusion of the median lobe into the bladder base. 3. There is wall thickening of the bladder diffusely, for which differential includes cystitis, chronic outlet obstruction, or neurogenic bladder. 4. There is a moderate size paraesophageal hiatus hernia. 5. Bilateral nonobstructing nephrolithiasis. Bilateral renal cysts. 6. Additional ancillary findings as discussed. Electronically signed by: Viral Godinez MD 06/15/2024 12:15 PM EDT
--- NOTE | 2024-06-15 09:35 | ED_ITS ---
HPI - General Adult General Chief complaint: General Medical Stated complaint: Constipation 3 days Time Seen by Provider: 06/15/24 09:35 Source: patient Mode of arrival: ambulatory Limitations: no limitations History of Present Illness ED Provider: Ryann Wilder PA-C HPI narrative: 73 year old male with no reported past medical history that reports difficulty defecating for the past 3 days despite using miralax. Patient states that he normally has a bowel movement once every day. He has also tried prune juice which did not help, but nothing has made it worse. Patient states he attempts to defecate about 12 times per day, and if any feces come out it is minimal and watery, color is unknown. Patients reports no new medications started in the last week. He reports no surgical or family history, cannot recall having a colonoscopy in the past. Denies ETOH and tobacco use. Lives with his at home, she did not come in with him today. Patient states he is in the early stages of dementia and has trouble remembering things. He also reports urinary frequency without large amounts of urine for the last few months. MD complaint: Constipation Onset (ago): day(s) (3) Relieving factors: none Exacerbating factors: none Treatments prior to arrival: other (miralax and prune juice) Related Data Home Medications ?Medication ?Instructions ?Recorded ?Confirmed bupropion HCl 150 mg 24 hr tablet, 450 mg PO QAM 05/06/22 05/06/22 extended release ergocalciferol (vitamin D2) 1,250 1,250 mcg PO QWEEK 05/06/22 05/06/22 mcg (50,000 unit) capsule (Vitamin D2) folic acid 1 mg tablet 1 mg PO DAILY 05/06/22 05/06/22 lorazepam 0.5 mg tablet 0.5 mg PO BEDTIME 05/06/22 05/06/22 omeprazole 20 mg capsule,delayed 20 mg PO DAILY 05/06/22 05/06/22 release sertraline 25 mg tablet 25 mg PO DAILY 05/06/22 05/06/22 sildenafil 100 mg tablet 100 mg PO DAILY PRN Erectile 05/06/22 05/06/22 Dysfunction Allergies Allergy/AdvReac Type Severity Reaction Status Date / Time No Known Allergies Allergy Verified 06/15/24 08:33 [No Known Allergies*] Review of Systems 2 Constitutional: Constitutional: Reports no additional constitutional complaints, Denies chills, Denies fever(s) and Denies night sweats Eyes: Eyes: Reports no additional eye complaints, Denies blurry vision, Denies change in vision, Denies diplopia, Denies eye discharge, Denies loss of vision and Denies eye pain ENT: Denies dizziness Cardiovascular: Cardiovascular: Reports no additional cardiovascular complaints, Denies chest pain, Denies lightheadedness, Denies Loss of Consciousness and Denies dyspnea Respiratory: Respiratory: Reports no additional respiratory complaints and Denies dyspnea Gastrointestinal: Gastrointestinal: Reports no additional gastrointestinal complaints, Denies abdominal pain, Denies melena, Denies hematochezia, Reports change in bowel habits, Reports change in stool character and Reports constipation Genitourinary: Genitourinary: Reports no additional male genitourinary complaints, Denies hematuria, Reports oliguria, Denies difficulty urinating, Denies dysuria, Denies urinary frequency, Denies urinary hesitancy, Denies urinary incontinence and Denies urinary urgency Musculoskeletal: Musculoskeletal: Reports no additional musculoskeletal complaints, Denies numbness and Denies tingling Neurologic: Denies dizziness, Denies loss of vision, Denies numbness and Denies tingling Psychiatric: Psychiatric: Reports no additional psychiatric complaints Endocrine: Endocrine: Reports no additional endocrine complaints Hematologic/Lymphatic: Hematologic/Lymphatic: Reports no additional hematologic/lymphatic complaints Allergic/Immunologic: Allergic/Immunologic: Reports no additional allergic/immunologic complaints [facility] Past Medical History Attestation statement: The following information was validated with the patient. Source: old records reviewed and nursing notes reviewed Social History Social History Smoked in Last 30 Days: No Use of substances other than those prescribed or required for medical reasons: No Advance Directives: No Advance Directives Information Provided: Yes Physical Exam ED Vital Signs: Vital Signs - 24 hr 06/15/24 08:32 06/15/24 09:12 06/15/24 13:42 Temperature 97.0 F 97.7 F Pulse Rate 89 88 73 Respiratory Rate 18 12 18 Blood Pressure 129/75 116/65 144/85 H Pulse Oximetry 98 96 97 Oxygen Delivery Method Room Air Room Air Room Air 06/15/24 14:00 06/15/24 16:00 Temperature Pulse Rate 73 73 Respiratory Rate 18 18 Blood Pressure 144/85 H 170/98 H Pulse Oximetry 97 97 Oxygen Delivery Method Room Air Room Air BMI result Body Mass Index 21.9 Const General: cooperative, no acute distress, alert and awake Nutritional Appearance: well nourished Orientation/consciousness: patient oriented x3 HENMT Head: Yes normal to inspection and Yes atraumatic Ears: hearing grossly normal bilaterally and external ears normal General nose exam: Normal external nose present, no nasal discharge noted and no epistaxis Face and sinus: Yes normal facial exam, No abrasion and No laceration Mouth: Normal oral and palatal mucosa present, no drooling and no muffled voice Eyes General: appearance normal, both eyes and all related structures Periorbital: periorbital findings normal Eyelids: Yes eyelids normal Conjunctivae: conjunctivae normal Pupils: Equal, round and reactive pupils present EOM: EOMs intact bilaterally Neck Neck: Yes normal visual inspection, Yes full ROM and Yes no lymphadenopathy Resp Effort & Inspection: normal respiratory effort and able to speak in complete sentences Cardio Rate: regular rate Rhythm: regular rhythm GI Inspection: Yes normal to inspection Palpation (GI): Soft to palpation (non tender to palpation), nontender, no guarding and not rigid Percussion: Yes normal to percussion Auscultation: normal bowel sounds Rectal Exam - Male: Yes visual inspection normal and Yes normal sphincter tone Skin General skin exam: no rashes or lesions noted Neuro General: patient oriented x3, moves all extremities and CN's II-XI intact bilaterally Cranial nerves: Yes Equal, round and reactive pupils present Cognition (Neuro): normal cognition Extrem General: Yes normal to inspection, Yes full ROM and Yes capillary refill normal Psych Appearance: grossly normal Mental Status: mental status grossly normal Affect: normal affect Attitude: cooperative Thought process: Normal thought process present Thought content: Normal thought content present Insight: Good insight present (Psych) Medications Administered Discontinued Medications Generic Name Dose Route Start Last Admin Trade Name Freq PRN Reason Stop Dose Admin Diatrizoate Meglum/Diatrizoate Sod 30 ml 06/15/24 11:49 06/15/24 11:50 Diatrizoate Meglumine, Sodium 30 Ml Solution PO 06/15/24 11:50 30 ml ONCE ONE Administration Iohexol 100 ml 06/15/24 11:50 06/15/24 11:50 Iohexol 350 Mg/Ml 100 Ml Infus..Btl IV 06/15/24 11:51 85 ml ONCE ONE Administration Magnesium Citrate 300 ml 06/15/24 13:04 06/15/24 13:37 Magnesium Citrate 300 Ml Solution PO 06/15/24 13:05 300 ml ONCE ONE Administration Mineral Oil 133 ml 06/15/24 13:04 06/15/24 13:36 Mineral Oil Enema 133 Ml Enema CA 06/15/24 13:05 133 ml ONCE ONE Administration Medical Decision Making Medical Decision Making [facility] Narrative: Patient is a 73 year old assigned male at with a history of early dementia and depression presenting to the emergency department today with constipation. Patient's physical exam was unremarkable. Patient's blood work was unremarkable. Patient's urine showed 4+ bacteria and positive nitrites however - will await culture report to treat as UTI. Patient's CT abd/pelvis showed a very large prostate at 6.9 cm in diameter with protrusion into the median lobe of the bladder base as well as 7.8 x 7.7 x 9.4 cm rectal stool ball. I explained my physical exam findings as well as all test results to the patient. I answered all questions asked by the patient. I attempted manual disimpaction however, I was unable to reach any stool in the rectal vault. Patient was given soap suds enema, magnesium citrate, and a fleet / mineral oil enema and was still unable to have a bowel movement. I spoke with the general surgery team who recomended medical admission. I spoke to the hospitalist team who agreed to admission. Patient verbalized agreement and understanding with this treatment plan and admission. I attempted to contact the patient's by phone however - she did not answer my numerous attempts to call. Differential Diagnosis Differential Diagnoses: The differential diagnosis associated with the presentation includes Constipation Obstipation Fecal impaction Admission/Observation Consideration of admission/observation: Escalation of care including admission/observation considered Patient admitted as noted in the MDM Rationale portion of this note. Consult Healthcare Provider Management of the patient was discussed with: Hospitalist (Agreed to admission as noted in the MDM Rationale portion of this note. ) and Resident In Diagnostic Radiology (spoke to the general surgery team as noted in the MDM Rationale portion of this note. ) Lab Data [facility] Lab Attestation statement: I reviewed the patient's lab results. My interpretation of these results are in the MDM Rationale portion of this note. 06/15/24 10:42 06/15/24 10:42 Labs: Lab Results 06/15/24 06/15/24 Range/Units 10:42 11:40 WBC 4.4 L (4.8-10.8) X10*3/uL RBC 4.08 L D (4.60-5.80) X10*6/uL Hgb 12.5 L D (14.0-18.0) g/dl Hct 37.1 L D (42.0-52.0) % MCV 90.9 (80.0-98.0) fL MCH 30.6 (27.0-33.0) pg MCHC 33.7 (31.0-36.0) g/dl RDW 13.4 (11.0-16.0) % Plt Count 181 D (160-400) X10*3/uL MPV 9.1 L (9.4-12.4) fL Immature Gran % (Auto) 0.2 (0.0-0.4) % Neut % (Auto) 53.7 (45-73) % Lymph % (Auto) 27.5 (20-40) % [place] % (Auto) 13.8 H (2-11) % Eos % (Auto) 3.7 (0-4) % Baso % (Auto) 1.1 (0-2) % Lymph # (Auto) 1.2 (1.2-4.9) X10*3/uL [place] # (Auto) 0.6 (0.1-1.2) X10*3/uL Eos # (Auto) 0.2 (0.0-0.4) X10*3/uL Baso # (Auto) 0.1 (0.0-0.2) X10*3/uL Abs Immat Gran (auto) 0.01 (0.00-0.03) X10*3/uL Absolute Neuts (auto) 2.3 (2.0-8.3) x10*3/uL Absolute Nucleated RBC 0.000 (0.0-0.012) X10*3/uL Nucleated RBC % (auto) 0.0 (0.0-0.2) /100WBC Sodium 138 (135-145) mmol/L Potassium 4.2 (3.3-5.1) mmol/L Chloride 105 (96-108) mmol/L Carbon Dioxide 28 (22-29) mmol/L Anion Gap 9 L (12-20) BUN 16 (9-16) mg/dL Creatinine 1.06 (0.5-1.4) mg/dL Estim Creat Clear Calc 66.0 Estimated GFR > 60 Random Glucose 99 (60-115) mg/dL Calcium 8.9 D (8.4-10.2) mg/dL Magnesium 2.1 (1.6-2.6) mg/dL Total Bilirubin 0.6 (0.0-1.0) mg/dL AST 22 (5-37) U/L ALT 16 (0-40) U/L Alkaline Phosphatase 53 (39-117) U/L Total Protein 6.0 L (6.5-8.0) g/dL Albumin 3.9 (3.5-5.0) g/dL Urine Color Yellow Urine Appearance Clear Urine pH 5.5 (5.0-9.0) Ur Specific [place] 1.025 (1.005-1.025) Urine Protein Trace (Neg-Trace) mg/dL Urine Glucose (UA) Negative (Negative) mg/dL Urine Ketones 40 (Negative) mg/dL Urine Blood Negative (Negative) Urine Nitrite Positive H (Negative) Ur Leukocyte Esterase Negative (Negative) Urine RBC 0-2 (0-2) /HPF Urine WBC 0-5 (0-5) /HPF Ur Squamous Epith Cells 0-2 (0-2) /HPF Urine Bacteria 4+ (None Seen) Hyaline Casts 0-2 (0-2) /LPF Independent Interpretation I performed an independent interpretation of an: CT Scan Interpretation: My interpretation is in agreement with the radiologist's impression of this imaging study. L Report Number: [id number]: Total DLP = 425.00 mGy-cm EXAMINATION: CT ABDOMEN AND PELVIS WITH CONTRAST CLINICAL INFORMATION: Concern for obstruction, constipation. COMPARISON: None available. TECHNIQUE: Multidetector volumetric images were obtained from the superior aspect of the liver through the pubic symphysis following administration 85 mL of Omnipaque 350 intravenous contrast. Sagittal and coronal reformatted images were obtained on the technologist's workstation. Oral contrast: Yes This CT examination was performed using dose optimization techniques as appropriate, variously including the following: *Automated exposure control *Adjustment of mA and/or kV according to patient size (this includes techniques or standardized protocols for targeted exams where dose is matched to indication/reason for exam; i.e. extremities or head) *Use of iterative reconstruction technique FINDINGS: LUNG BASES: There is a moderate-sized paraesophageal hiatus hernia. There is reticular atelectasis/scarring in the subpleural left lower lobe and to a lesser degree subpleural right lower lobe. Lung bases otherwise clear. No effusions. LIVER, GALLBLADDER, AND BILIARY TREE: The liver is normal in size, shape, and attenuation. There are tiny cysts in segment 8 and 4A. No biliary ductal dilatation is present. The gallbladder is unremarkable with no evidence of radiopaque gallstones, gallbladder wall thickening, or obvious pericholecystic inflammatory changes. PANCREAS: Unremarkable. SPLEEN: Unremarkable. ADRENAL GLANDS: Unremarkable. KIDNEYS AND URETERS: There are bilateral renal cysts present, the largest in the left upper pole measuring 5.8 cm in diameter. No hydronephrosis of either kidney. There are 2 nonobstructing calculi in the right kidney mid and lower pole, larger measuring 9 mm, smaller measuring 3 mm. There is a 3 mm nonobstructing calculus in the inferior pole of the left kidney. There are no renal masses identified. There is no ureteral dilatation. BLADDER: Distended, and diffusely thick-walled, findings consistent with cystitis, chronic elevated obstruction, or possibly neurogenic bladder. The median lobe of the prostate protrudes significantly into the bladder base. GASTROINTESTINAL TRACT: There is no bowel obstruction. There is extensive fecal material seen throughout the colon and distending the rectum. There is a rectal stool ball present measuring 7.8 x 7.7 x 9.4 cm. No rectal wall thickening. The colon demonstrates no definitive wall thickening or inflammation. A normal appendix is visualized. The small bowel is normal in caliber and course. No wall thickening or inflammation. ABDOMINAL WALL: There is a small fat-containing umbilical hernia. LYMPH NODES: None enlarged by size criteria. VASCULAR: Moderate atheromatous calcification of the aorta, iliac arteries, and branches, without evidence of aneurysm. No venous thrombosis. PELVIC VISCERA: Massive enlargement of the prostate, measuring 6.9 cm in diameter. Protrusion of the median lobe into the bladder base. Irregular enhancement pattern, nonspecific.. OSSEOUS STRUCTURES: There are advanced degenerative changes throughout the spine and SI joints. There is partial ankylosis of both SI joints. There are mild to moderate degenerative changes in both hip joints. No suspicious lytic or blastic bone lesion. CT/CT abdomen pelvis w IV con IMPRESSION: 1. Moderate to severe constipation. No definite bowel obstruction identified. 2. Massive enlargement of the prostate gland, measuring up to 6.9 cm in diameter, with protrusion of the median lobe into the bladder base. 3. There is wall thickening of the bladder diffusely, for which differential includes cystitis, chronic outlet obstruction, or neurogenic bladder. 4. There is a moderate size paraesophageal hiatus hernia. 5. Bilateral nonobstructing nephrolithiasis. Bilateral renal cysts. 6. Additional ancillary findings as discussed. Electronically signed by: Viral Godinez MD 06/15/2024 12:15 PM EDT Dictated By: Viral Godinez MD Signed By: Electronically signed by Viral Godinez MD 06/15/24 1215 Radiology Impression Discussion of test interpretation with radiology: I have reviewed the radiologist's reading. Critical Care Time Critical Care Time Critical Care Time: Yes Total Critical Care Time: 49 Attestation: I spent 49 minutes of Critical Care Time with this patient. This does not include time spent on separately reported billable procedures. Discharge Plan Discharge Clinical Impression: Constipation, Fecal impaction Patient Disposition: Admitted As Inpatient
[2024-06-15 10:46] LABS: MANUAL DIFF FLAG NO
[2024-06-15 10:49] LABS: Basophils Absolute Auto 0.1 X10*3/uL (0.0-0.2); Basophils Percent Auto 1.1 % (0-2); Eosinophils Absolute Auto 0.2 X10*3/uL (0.0-0.4); Eosinophils Percent Auto 3.7 % (0-4); Hematocrit 37.1 % (42.0-52.0); Hemoglobin 12.5 g/dl (14.0-18.0); Imm Gran Abs Auto 0.01 X10*3/uL (0.00-0.03); Imm Gran Pct Auto 0.2 % (0.0-0.4); Lymphocytes Absolute Auto 1.2 X10*3/uL (1.2-4.9); Lymphocytes Percent Auto 27.5 % (20-40); Mean Corpuscular HGB Conc 33.7 g/dl (31.0-36.0); Mean Corpuscular Hemoglobin 30.6 pg (27.0-33.0); Mean Corpuscular Volume 90.9 fL (80.0-98.0); Mean Platelet Volume 9.1 fL (9.4-12.4); Monocytes Absolute Auto 0.6 X10*3/uL (0.1-1.2); Monocytes Percent Auto 13.8 % (2-11); Neutrophils Absolute Auto 2.3 x10*3/uL (2.0-8.3); Neutrophils Percent Auto 53.7 % (45-73); Platelet Count 181 X10*3/uL (160-400); Red Blood Count 4.08 X10*6/uL (4.60-5.80); Red Cell Distribution Width 13.4 % (11.0-16.0); White Blood Count 4.4 X10*3/uL (4.8-10.8)
[2024-06-15 11:02] LABS: Alanine Aminotransferase 16 U/L (0-40); Albumin Level 3.9 g/dL (3.5-5.0); Alkaline Phosphatase 53 U/L (39-117); Anion Gap 9 (12-20); Aspartate Amino Transferase 22 U/L (5-37); Bilirubin Total 0.6 mg/dL (0.0-1.0); Blood Urea Nitrogen 16 mg/dL (9-16); Calcium 8.9 mg/dL (8.4-10.2); Carbon Dioxide 28 mmol/L (22-29); Chloride 105 mmol/L (96-108); Estimated Glomerular Filt Rate > 60; Glucose Random 99 mg/dL (60-115); Magnesium 2.1 mg/dL (1.6-2.6); Potassium 4.2 mmol/L (3.3-5.1); Sodium 138 mmol/L (135-145)
[2024-06-15 11:50] LABS: Appearance Urine Clear; Color Urine Yellow; Glucose Urine UA Negative (Negative); Leukocyte Esterase Urine Negative (Negative); Nitrite Urine Positive (Negative); PH 5.5 (5.0-9.0); Specific Gravity - Urine 1.025 (1.005-1.025); UMIC TRIGGER UACC YES; Urine Blood Negative (Negative); Urine Ketones 40 mg/dL (Negative); Urine Protein Trace mg/dL (Neg-Trace)
[2024-06-15] MEDS: Diatrizoate Meglumine, Sodium 30 ML SOLUTION PO (11:50)
[2024-06-15] MEDS: iohexoL 350 MG/ML 100 ML INFUS..BTL IV (11:50)
[2024-06-15 11:55] LABS: Bacteria Urine 4+ (None Seen); Hyaline Casts Urine 0-2 /LPF (0-2); RBC Urine 0-2 /HPF (0-2); Squamous Epithelial Cell Urine 0-2 /HPF (0-2); UACC Culture Trigger YES; WBC Urine 0-5 /HPF (0-5)
--- NOTE | 2024-06-15 12:40 | PC.NURSE ---
Soapsuds enema admin. per orders; pt tolerated well; pt holding in fluid as instructed; will freq. check in on pt for progress; pt denies abd pain with enema at this time
--- NOTE | 2024-06-15 13:22 | PC.NURSE ---
Report received. Taken over care at this time.
[2024-06-15] MEDS: Mineral OiL enema 133 ML ENEMA PR (13:36)
[2024-06-15] MEDS: Magnesium Citrate 300 ML SOLUTION PO (13:37)
--- NOTE | 2024-06-15 16:33 | MHC.EDTECH ---
pt bladder scanned greater than 498 volume.
--- NOTE | 2024-06-15 16:52 | PM.IMHP ---
History of Present Illness Date of Service: 06/15/24 Attending physician on admission: [facility] Chief Complaint: Constipation Pt is a 73-year-old male with a PMH significant for?GERD, BPH, early dementia, and mood disorder who presents to the ED with?constipation for at least the past 3 days. Pt with diagnosis of early dementia, is alert and oriented to self, place, and partly to situation. However, pt is forgetful of some details and unable to provide the correct year. Reports has been constipation for at least the past 3 days. Normally goes every day and denies hx of constipation. Reports abdomen has ?felt really bad? but is unable to further specify symptoms. Denies nausea or vomiting. Denies significant abdominal pain. States has been urinating 6-7 times every day for the past 6 months, though denies any dysuria. No fever, chills. Denies shortness or breath or difficulty breathing. No chest pain/pressure, palpitations. In the ED pt was hypertensive up to 170/98, vitals otherwise stable and WNL. Labs were significant for mild normocytic anemia of 12.5/37.1, otherwise grossly unremarkable and around baseline for pt. No leukocytosis. No significant electrolyte abnormalities. Renal function baseline. Hepatic function baseline. UA positive for nitrites and 4+ bacteria, otherwise negative. CT?of abdomen and pelvis showing moderate to severe constipation without definitive bowel obstruction. Also showed wall thickening of bladder diffusely consistent with cystitis, chronic outlet obstruction, or neurogenic bladder. Also showed massive enlargement of prostate gland with protrusion into bladder base. Pt was treated in the ED with magnesium citrate, soapsuds enema, and mineral oil/Fleet enema. Pt is admitted to the hospital under observation for treatment and further evaluation of severe constipation with impaction that has failed treatment in the ED and possibly requires physical disimpaction by General surgery in the OR. Review of Systems Review of Systems: Negative except for that which is stated in the HPI. [facility] Medical History (Updated 06/15/24 @ 19:58 by MYRTLE Flanagan) Mood disorder Early onset Alzheimer dementia Social History Household Members: Spouse Patient Tobacco Use Status: Never used Tobacco service: No Meds Allergies Allergy/AdvReac Type Severity Reaction Status Date / Time No Known Allergies Allergy Verified 06/15/24 08:33 [No Known Allergies*] Home Medications ?Medication ?Instructions ?Recorded ?Confirmed ?Last Taken ?Type folic acid 1 mg tablet 1 mg PO DAILY 05/06/22 06/15/24 06/15/24 History omeprazole 20 mg capsule,delayed 20 mg PO DAILY@0630 05/06/22 06/15/24 06/15/24 History release sildenafil 100 mg tablet 100 mg PO DAILY PRN Erectile 05/06/22 06/15/24 06/15/24 History Dysfunction bupropion HCl 300 mg 24 hr tablet, 300 mg PO DAILY 06/15/24 06/15/24 06/15/24 History extended release lamotrigine 100 mg tablet 100 mg PO DAILY 06/15/24 06/15/24 06/15/24 History lamotrigine 25 mg tablet 25 mg PO BID 06/15/24 06/15/24 06/15/24 History mirtazapine 15 mg tablet 15 mg PO BEDTIME 06/15/24 06/15/24 06/15/24 History quetiapine 100 mg tablet 100 mg PO BID 06/15/24 06/15/24 06/15/24 History quetiapine 25 mg tablet 25 mg PO BID PRN anxiety 06/15/24 06/15/24 06/15/24 History tamsulosin 0.4 mg capsule 0.4 mg PO BEDTIME 06/15/24 06/15/24 06/15/24 History Physical Exam Vital Signs and Narrative: Vital Signs: Last Vital Signs Temp 97.7 F 06/15/24 09:12 Pulse 73 06/15/24 16:00 Resp 18 06/15/24 16:00 BP 170/98 H 06/15/24 16:00 Pulse Ox 97 06/15/24 16:00 O2 Del Method Room Air 06/15/24 16:00 BMI result Body Mass Index 21.9 General: Alert and oriented to self, place, and situation, though not to time. In no acute distress Resp: CTA bilaterally CVS: S1, S2, RRR GI: +BS, NT, no distention, mildly firm Skin: Warm, dry Neuro: Cranial nerves II-XII grossly intact bilaterally. Motor grossly intact bilaterally Extremities: No edema Psych: Mildly confused, forgetful of some details, repeating self Results Labs 06/15/24 10:42 06/15/24 10:42 Labs: Laboratory Results - last 24 hr 06/15/24 06/15/24 10:42 11:40 MCV 90.9 MCH 30.6 MCHC 33.7 RDW 13.4 Plt Count 181 D MPV 9.1 L Immature Gran % (Auto) 0.2 Neut % (Auto) 53.7 Lymph % (Auto) 27.5 [place] % (Auto) 13.8 H Eos % (Auto) 3.7 Baso % (Auto) 1.1 Lymph # (Auto) 1.2 [place] # (Auto) 0.6 Eos # (Auto) 0.2 Baso # (Auto) 0.1 Abs Immat Gran (auto) 0.01 Absolute Neuts (auto) 2.3 Absolute Nucleated RBC 0.000 Nucleated RBC % (auto) 0.0 Anion Gap 9 L Estim Creat Clear Calc 66.0 Estimated GFR > 60 Random Glucose 99 Calcium 8.9 D Magnesium 2.1 Total Bilirubin 0.6 AST 22 ALT 16 Alkaline Phosphatase 53 Total Protein 6.0 L Albumin 3.9 Urine Color Yellow Urine Appearance Clear Urine pH 5.5 Ur Specific [place] 1.025 Urine Protein Trace Urine Glucose (UA) Negative Urine Ketones 40 Urine Blood Negative Urine Nitrite Positive H Ur Leukocyte Esterase Negative Urine RBC 0-2 Urine WBC 0-5 Ur Squamous Epith Cells 0-2 Urine Bacteria 4+ Hyaline Casts 0-2 Imaging Radiologist's Impressions: Impressions Abdomen/Pelvis CT 06/15/24 11:48 IMPRESSION: 1. Moderate to severe constipation. No definite bowel obstruction identified. 2. Massive enlargement of the prostate gland, measuring up to 6.9 cm in diameter, with protrusion of the median lobe into the bladder base. 3. There is wall thickening of the bladder diffusely, for which differential includes cystitis, chronic outlet obstruction, or neurogenic bladder. 4. There is a moderate size paraesophageal hiatus hernia. 5. Bilateral nonobstructing nephrolithiasis. Bilateral renal cysts. 6. Additional ancillary findings as discussed. Electronically signed by: Viral Godinez MD 06/15/2024 12:15 PM EDT RP Assessment and Plan (1) Fecal impaction: Status: Acute Plan Pt is a 73-year-old male with a PMH significant for?GERD, BPH, early dementia, and mood disorder who presents to the ED with?constipation for at least the past 3 days. Pt is admitted to the hospital under observation for treatment and further evaluation of severe constipation with impaction that has failed treatment in the ED and possibly requires physical disimpaction by General surgery in the OR. Constipation/impaction Pt with constipation and abdominal discomfort for at least the past [address] showing moderate to severe constipation without definite obstruction Manual disimpaction unsuccessful in the ED Treated in the ED with magnesium citrate, soapsuds enema, and mineral oil/Fleet enema to no effect We will give lactulose 30g b.i.d. General surgery consult for possible disimpaction in the OR tomorrow NPO past midnight Question of UTI UA equivocal with positive nitrites and 4+ bacteria, otherwise negative CT showing diffuse bladder wall thickening possibly suggestive of cystitis vs chronic outlet obstruction vs neurogenic bladder Will empirically treat with ceftriaxone, started 06/15/2024 Pt does not meet any SIRS criteria, no sepsis Follow urine cultures BPH CT shows massive enlargement of prostate with protrusion of median lobe into bladder base Continue tamsulosin Follow up outpatient with PCP or Urology Mood disorder/early dementia Continue bupropion, lamotrigine, mirtazapine, and quetiapine GERD Continue omeprazole Full Code, verified with pt Attending:?Dr. Smith DVT Prophylaxis: Pneumatic compression due to possible OR procedure in the morning Pt will be admitted to the hospital under observation for treatment and further evaluation of severe constipation with impaction that has failed treatment in the ED and possibly requires manual disimpaction by General surgery in the OR. Quality Stroke Does the patient have a stroke diagnosis?: No VTE Prior VTE?: No VTE Risk Level:: Medical - moderate - high VTE Device Contraindication: N/A - Device Ordered VTE Drug Contraindication: Treatment Not Indicated
--- NOTE | 2024-06-15 17:08 | PM.CNGS ---
History of Present Illness Consult details Consult date: 06/15/24 Requesting physician: Ryann Wilder Narrative: 73-year-old male patient with a past history of early dementia, presenting with complaints of cramping abdominal pain and inability to pass his bowels for least the past 3 days. He apparently has tried some stool softener including MiraLax and prune juice without much success. He denies any previous history of the similar problem. He did have some liquid bowel movement no solid bowel movement and no bleeding per rectum. Previous surgical history is significant for a inguinal hernia repair. He denies any other abdominal surgery. He denies nausea, vomiting, fever or chills. Workup revealed a normal WBC. CT abdomen and pelvis revealed moderate to severe constipation with no definite bowel obstruction. There is massive enlargement of the prostate gland with a protrusion of the medial lobe into the bladder base. There is wall thickening of the bladder diffusely which the differential includes cystitis, chronic outlet obstruction or neurogenic bladder. Review of Systems Review of Systems: Yes all other systems are reviewed and are negative PMFSH Social History Social History Smoked in Last 30 Days: No Use of substances other than those prescribed or required for medical reasons: No Advance Directives: No Advance Directives Information Provided: Yes Meds Allergies Allergy/AdvReac Type Severity Reaction Status Date / Time No Known Allergies Allergy Verified 06/15/24 08:33 [No Known Allergies*] Home Medications ?Medication ?Instructions ?Recorded ?Confirmed ?Last Taken ?Type ergocalciferol (vitamin D2) 1,250 1,250 mcg PO QWEEK 05/06/22 05/06/22 Unknown History mcg (50,000 unit) capsule (Vitamin D2) folic acid 1 mg tablet 1 mg PO DAILY 05/06/22 05/06/22 Unknown History lorazepam 0.5 mg tablet 0.5 mg PO BEDTIME 05/06/22 05/06/22 Unknown History omeprazole 20 mg capsule,delayed 20 mg PO DAILY 05/06/22 05/06/22 Unknown History release sertraline 25 mg tablet 25 mg PO DAILY 05/06/22 05/06/22 Unknown History sildenafil 100 mg tablet 100 mg PO DAILY PRN Erectile 05/06/22 05/06/22 Unknown History Dysfunction bupropion HCl 300 mg 24 hr tablet, 300 mg PO QAM 06/15/24 Unknown History extended release lamotrigine 25 mg tablet 25 mg PO BID 06/15/24 Unknown History mirtazapine 15 mg tablet 15 mg PO BEDTIME 06/15/24 Unknown History quetiapine 100 mg tablet 100 mg PO BID 06/15/24 Unknown History quetiapine 25 mg tablet 25 mg PO BID PRN anxiety 06/15/24 Unknown History tamsulosin 0.4 mg capsule 0.4 mg PO BEDTIME 06/15/24 Unknown History Physical Exam Vital Signs: Vital Signs: Last Vital Signs Temp 97.7 F 06/15/24 09:12 Pulse 73 06/15/24 16:00 Resp 18 06/15/24 16:00 BP 170/98 H 06/15/24 16:00 Pulse Ox 97 06/15/24 16:00 O2 Del Method Room Air 06/15/24 16:00 BMI result Body Mass Index 21.9 Const: General: cooperative and no acute distress Nutritional Appearance: well nourished HEENT: Head: Yes normocephalic and Yes atraumatic Ears: hearing grossly normal bilaterally Resp: Effort & Inspection: normal respiratory effort, no audible wheezes, no cough and no respiratory distress Cardio: Jugular venous distension: no JVD GI: Inspection: Yes normal to inspection Palpation (GI): Soft to palpation, nontender, no guarding and No hepatosplenomegaly present Percussion: Yes normal to percussion Auscultation: normal bowel sounds Rectal Exam - Male: Yes deferred Skin: Other: Warm, dry, no rash Extrem: General: Yes no clubbing, cyanosis or edema Results Labs 06/15/24 10:42 06/15/24 10:42 Labs: Abnormal lab results 06/15/24 06/15/24 Range/Units 10:42 11:40 WBC 4.4 L (4.8-10.8) X10*3/uL RBC 4.08 L D (4.60-5.80) X10*6/uL Hgb 12.5 L D (14.0-18.0) g/dl Hct 37.1 L D (42.0-52.0) % MPV 9.1 L (9.4-12.4) fL [place] % (Auto) 13.8 H (2-11) % Anion Gap 9 L (12-20) Total Protein 6.0 L (6.5-8.0) g/dL Urine Nitrite Positive H (Negative) Short CBC 06/15/24 Range/Units 10:42 WBC 4.4 L (4.8-10.8) X10*3/uL Hgb 12.5 L D (14.0-18.0) g/dl Hct 37.1 L D (42.0-52.0) % Plt Count 181 D (160-400) X10*3/uL BMP 06/15/24 10:42 Sodium 138 Potassium 4.2 Chloride 105 Carbon Dioxide 28 BUN 16 Creatinine 1.06 Calcium 8.9 D Liver Function 06/15/24 Range/Units 10:42 Total Bilirubin 0.6 (0.0-1.0) mg/dL AST 22 (5-37) U/L ALT 16 (0-40) U/L Alkaline Phosphatase 53 (39-117) U/L Albumin 3.9 (3.5-5.0) g/dL Urine 06/15/24 Range/Units 11:40 Urine Color Yellow Urine Appearance Clear Urine pH 5.5 (5.0-9.0) Ur Specific [place] 1.025 (1.005-1.025) Urine Protein Trace (Neg-Trace) mg/dL Urine Glucose (UA) Negative (Negative) mg/dL All other labs normal. Assessment and Plan (1) Constipation: Qualifiers: Constipation type: chronic idiopathic constipation Qualified Code(s): K59.04 - Chronic idiopathic constipation Status: Acute Plan 73-year-old male patient with a early onset dementia presenting with a large stool ball noted by CT within the rectum. Patient has had some liquid bowel movements but no solid movement for least 3-4 days. Patient's abdomen is benign and minimally distended. Recommend lactulose along with MiraLax. If no results could progress to fleets enema or tap water enema. We will monitor patient's progress. Procedures Date of Service Date of Service: 06/15/24
--- NOTE | 2024-06-15 18:42 | PHA.MEDREC ---
Addendum entered by Ramez Rivas [facility] 06/15/24 19:31: MED REC CHECKED BY [facility] Original Note: Pharmacy Consult ? Medication Reconciliation Pharmacy has completed the medication reconciliation. Spoke with patient and pt is a poor historian and stated his , Gina takes care of all his medications. I called and spoke with Gina and she was able to confirm the pt's medications.
[2024-06-15] MEDS: 0.9 % Sodium Chloride Flush 3 ML SYRINGE IVFLUSH (21:05)
[2024-06-15] MEDS: Mirtazapine 15 MG TABLET PO (21:05)
[2024-06-15] MEDS: Tamsulosin HCL 0.4 MG CAPSULE PO (21:05)
[2024-06-15] MEDS: lamoTRIgine 25 MG TABLET PO (21:05)
[2024-06-15] MEDS: QUEtiapine Fumarate 100 MG TABLET PO (21:05)
[2024-06-16] VITALS: BP 107/66; PULSE 80; RESP 16; TEMP 36.9; O2SAT 96
[2024-06-16 01:09] VITALS: BMI 22.1
[2024-06-16] MEDS: cefTRIAXone sodium 1 GM VIAL IVPUSH (01:27)
[2024-06-16 03:14] VITALS: BP 107/56; PULSE 85; RESP 16; TEMP 36.7; O2SAT 98
[2024-06-16 07:18] VITALS: BP 117/68; PULSE 82; RESP 16; TEMP 36.7; O2SAT 96
[2024-06-16] MEDS: 0.9 % Sodium Chloride Flush 3 ML SYRINGE IVFLUSH (07:38)
[2024-06-16 08:00] VITALS: BP 119/71; PULSE 89; RESP 15; TEMP 36.8; O2SAT 98
[2024-06-16] MEDS: Folic Acid 1 MG TABLET PO (08:50)
[2024-06-16] MEDS: QUEtiapine Fumarate 100 MG TABLET PO (08:50)
[2024-06-16] MEDS: buPROPion HCl XL 300 MG TAB.ER.24H PO (08:50)
[2024-06-16] MEDS: lamoTRIgine 100 MG TABLET PO (08:50)
[2024-06-16] MEDS: polyethylene glycoL 3350 17 GM POWD.PACK PO (08:51)
[2024-06-16] MEDS: lamoTRIgine 25 MG TABLET PO (08:54)
--- NOTE | 2024-06-16 09:10 | P.PNGS_ITS ---
Subjective Subjective Date of Service: 06/16/24 Interval history: Had a very large BM last night in ED and reports a moderate liquid one this morning. Feels improved. Denies abd pain. Wants to eat. Physical Exam 2 Vital Signs: Vital Signs: Last Vital Signs Temp 98.3 F 06/16/24 08:00 Pulse 89 06/16/24 08:00 Resp 15 06/16/24 08:00 BP 119/71 06/16/24 08:00 Pulse Ox 98 06/16/24 08:00 O2 Del Method Room Air 06/16/24 08:00 BMI result Body Mass Index 22.1 Const: General: comfortable, no acute distress and alert Resp: Effort & Inspection: normal respiratory effort GI: Inspection: Yes normal to inspection and No distended Palpation (GI): S oft to palpation, nontender and no guarding Skin: General skin exam: no rashes or lesions noted Neuro: General: moves all extremities Objective Data Active Medications Acetaminophen (Acetaminophen 325 Mg Tablet) 650 mg PO Q6H PRN PRN Reason: Pain, Mild 1-3,fever,headache Bupropion HCl (Bupropion Hcl Xl 300 Mg Tab.Er.24h) 300 mg PO DAILY [facility] Last Admin: 06/16/24 08:50 Dose: 300 mg Documented By: LAUREN Calcium Carbonate (Calcium Carbonate 750 Mg Tab.Chew) 750 mg PO Q4H PRN PRN Reason: Heartburn Ceftriaxone Sodium (Ceftriaxone Sodium 1 Gm Vial) 1 gm IVPUSH Q24H [facility] Last Admin: 06/16/24 01:27 Dose: 1 gm Documented By: AUDRA Folic Acid (Folic Acid 1 Mg Tablet) 1 mg PO DAILY [facility] Last Admin: 06/16/24 08:50 Dose: 1 mg Documented By: LAUREN Lactulose (Lactulose 20 Gm/30 Ml Solution) 30 gm PO TID [facility] Last Admin: 06/16/24 08:52 Dose: Not Given Documented By: LAUREN Non-Admin Reason: Hled per GI MYRTLE Alas Lamotrigine (Lamotrigine 25 Mg Tablet) 25 mg PO BID [facility] Last Admin: 06/16/24 08:54 Dose: 25 mg Documented By: LAUREN Lamotrigine (Lamotrigine 100 Mg Tablet) 100 mg PO DAILY [facility] Last Admin: 06/16/24 08:50 Dose: 100 mg Documented By: LAUREN Magnesium Hydroxide (Milk Of Magnesia 30 Ml Oral.Susp) 30 ml PO DAILY PRN PRN Reason: Constipation Melatonin (Melatonin 3 Mg Tablet) 6 mg PO BEDTIME PRN PRN Reason: Insomnia Mirtazapine (Mirtazapine 15 Mg Tablet) 15 mg PO BEDTIME [facility] Last Admin: 06/15/24 21:05 Dose: 15 mg Documented By: AUDRA Omeprazole (Omeprazole 20 Mg Capsule.Dr) 20 mg PO DAILY@0630 [facility] Last Admin: 06/16/24 04:41 Dose: Not Given Documented By: AUDRA Non-Admin Reason: NPO Polyethylene Glycol (Polyethylene Glycol 3350 17 Gm Powd.Pack) 17 gm PO TID [facility] Last Admin: 06/16/24 08:51 Dose: 17 gm Documented By: LAUREN Quetiapine Fumarate (Quetiapine Fumarate 100 Mg Tablet) 100 mg PO BID [facility] Last Admin: 06/16/24 08:50 Dose: 100 mg Documented By: LAUREN Quetiapine Fumarate (Quetiapine Fumarate 25 Mg Tablet) 25 mg PO BID PRN PRN Reason: anxiety Sodium Chloride (0.9 % Sodium Chloride Flush 3 Ml Syringe) 3 ml IVFLUSH QSHIFT [facility] Last Admin: 06/16/24 07:38 Dose: 3 ml Documented By: LAUREN Tamsulosin HCl (Tamsulosin Hcl 0.4 Mg Capsule) 0.4 mg PO BEDTIME [facility] Last Admin: 06/15/24 21:05 Dose: 0.4 mg Documented By: AUDRA Labs 06/15/24 10:42 06/15/24 10:42 Labs: Laboratory Results - last 24 hr 06/15/24 06/15/24 10:42 11:40 MCV 90.9 MCH 30.6 MCHC 33.7 RDW 13.4 Plt Count 181 D MPV 9.1 L Immature Gran % (Auto) 0.2 Neut % (Auto) 53.7 Lymph % (Auto) 27.5 [place] % (Auto) 13.8 H Eos % (Auto) 3.7 Baso % (Auto) 1.1 Lymph # (Auto) 1.2 [place] # (Auto) 0.6 Eos # (Auto) 0.2 Baso # (Auto) 0.1 Abs Immat Gran (auto) 0.01 Absolute Neuts (auto) 2.3 Absolute Nucleated RBC 0.000 Nucleated RBC % (auto) 0.0 Anion Gap 9 L Estim Creat Clear Calc 66.0 Estimated GFR > 60 Random Glucose 99 Calcium 8.9 D Magnesium 2.1 Total Bilirubin 0.6 AST 22 ALT 16 Alkaline Phosphatase 53 Total Protein 6.0 L Albumin 3.9 Urine Color Yellow Urine Appearance Clear Urine pH 5.5 Ur Specific [place] 1.025 Urine Protein Trace Urine Glucose (UA) Negative Urine Ketones 40 Urine Blood Negative Urine Nitrite Positive H Ur Leukocyte Esterase Negative Urine RBC 0-2 Urine WBC 0-5 Ur Squamous Epith Cells 0-2 Urine Bacteria 4+ Hyaline Casts 0-2 Procedures Date of Service Date of Service: 06/16/24 Progress Note: A&P Assessment and plan (1) Fecal impaction: Status: Acute (2) Constipation: Status: Acute Plan Now moving bowels and feels improved. Abd benign. Can hold off on disimpaction. Advance diet as tolerated. He reports baseline hard stools and it was discussed to increase fiber intake or add fiber supplemental like metamucil or citracel and increase water intake to soften stools, prevent recurrence. He understands and agrees with plan. Time Spent With Patient Time: Total time managing care of this patient today ____ minutes. Quality Stroke Does the patient have a stroke diagnosis?: No VTE Prior VTE?: No VTE Risk Level:: Medical - moderate - high VTE Device Contraindication: N/A - Device Ordered VTE Drug Contraindication: Treatment Not Indicated
--- NOTE | 2024-06-16 10:29 | MHC.CM.PN ---
Addendum entered by Rebecca Wilson 06/16/24 10:33: A HCP has been documented and scanned into EMR. A copy has been provided to the patient. Original Note: 06/15/24 J[place] DX Constipation Patient lives with his . He is independent with all functional mobility. Laxatives produces good results. Per MD rounds, patient will discharge later today. Discharge plan: Home self care car in lot
[2024-06-16 12:00] VITALS: BP 122/96; PULSE 97; RESP 17; TEMP 36.8; O2SAT 95
--- NOTE | 2024-06-16 12:35 | P.DS_ITS ---
DS: Providers Provider Date of Service: 06/16/24 Date of admission: 06/15/24 16:20 Date of discharge: 06/16/24 Primary care physician: Shraddha Mcdermott NP Consults: 06/15/24 16:01 Consult to General Surgery Routine Consulting Provider: [facility] General Surgeons Reason for consultation: Severe impaction Has provider been notified: Yes 06/15/24 19:51 Consult to General Surgery Routine Consulting Provider: [facility] General Surgeons Reason for consultation: Severe constipation, ?disempaction in the OR DS: Diagnosis Discharge Diagnosis (1) Fecal impaction: Status: Acute DS: Summary Hospital Course Hospital Course: 73-year-old male with a PMH significant for?GERD, BPH, early dementia, and mood disorder who presents to the ED with?constipation for at least the past 3 days. Pt with diagnosis of early dementia, is alert and oriented to self, place, and partly to situation. However, pt is forgetful of some details and unable to provide the correct year. Reports has been constipation for at least the past 3 days. Normally goes every day and denies hx of constipation. Reports abdomen has ?felt really bad? but is unable to further specify symptoms. Denies nausea or vomiting. Denies significant abdominal pain. States has been urinating 6-7 times every day for the past 6 months, though denies any dysuria. No fever, chills. Denies shortness or breath or difficulty breathing. No chest pain/pressure, palpitations. Patient admitted to telemetry. Received several doses of lactulose and MiraLax with excellent results the day of discharge. Three bowel movements of large amounts of stool. Seen in consultation by surgery who agreed with the initial plan. At this point in time patient is medically acceptable to discharged home and will use MiraLax 1 tbsp at bedtime as needed for constipation and will titrate to his needs. He is discharged in stable condition will follow up with PCP Time Attestation Discharge Coordination Time (in mins): 35 Quality: Safe Use of Opioids Does Pt have an Active Cancer Diagnosis on the Problem List?: No Quality: Stroke Does the patient have a stroke diagnosis?: No Physical Exam Vital Signs: Vital Signs: Last Vital Signs Temp 98.2 F 06/16/24 12:00 Pulse 97 06/16/24 12:00 Resp 17 06/16/24 12:00 BP 122/96 H 06/16/24 12:00 Pulse Ox 95 06/16/24 12:00 O2 Del Method Room Air 06/16/24 12:00 BMI result Body Mass Index 22.1 Const: Other: Awake alert no acute distress Resp: Other: Clear to auscultation bilaterally no rales rhonchi or wheezes Cardio: Other: No S4; positive S1-S2; no S3 murmurs rubs or gallops GI: Other: Soft nontender nondistended normoactive bowel sounds Extrem: Other: No edema edema bilaterally Discharge Plan Discharge Anticipated Discharge Date/Time: 06/16/24 12:32 Patient Disposition: Home, Self-Care Discharge Diagnosis: Fecal impaction fecal impaction Referrals: Shraddha Mcdermott SALES AND MERCHANDISING REPRESENTATIVE [Primary Care Provider] - 1 Week Discharge Medications: New lactulose 10 gram/15 mL solution 10 g PO BEDTIME PRN (Reason: constipation) Qty: 1500 0RF Continued sildenafil 100 mg tablet 100 mg PO DAILY PRN (Reason: Erectile Dysfunction) omeprazole 20 mg capsule,delayed release(DR/EC) 20 mg PO DAILY@0630 folic acid 1 mg tablet 1 mg PO DAILY quetiapine 25 mg tablet 25 mg PO BID PRN (Reason: anxiety) quetiapine 100 mg tablet 100 mg PO BID lamotrigine 25 mg tablet 25 mg PO BID Rx Instructions: Taken with 100mg for TTD= 125mg tamsulosin 0.4 mg capsule 0.4 mg PO BEDTIME mirtazapine 15 mg tablet 15 mg PO BEDTIME bupropion HCl 300 mg tablet extended release 24 hr 300 mg PO DAILY lamotrigine 100 mg tablet 100 mg PO DAILY Rx Instructions: Taken with 25mg for TTD= 125mg Discharge Orders: Discharge Order (Routine); Ordered 06/16/24 Ordered By: Damian Smith Diet: Advance to usual diet Activity on Discharge: As tolerated Stand Alone Forms: Patient Portal Discharge page Print Language: Maltese Care Plan Goals: Resume all your medicines as taken prior to hospital Health Concerns: Lactulose 1 tbsp at bedtime as needed for constipation. You can adjust this to your response Plan of Treatment: Follow up with the PCP next available Assessment: See discharge summary
--- NOTE | 2024-06-16 13:03 | MHC.CM.PN ---
Patient is discharged today to home self care. He will self transport home.
== END 2024-06-16 12:50 | disposition home or self-care (01) ==
LOC: HO.ED 16:01 → HO.EDOVER 16:33 → HO.IMC 17:31
PROVIDERS: Physician Assistant Medical; Admitting Provider Student in an Organized Health Care Education/Training Program; Emergency Provider Emergency Medicine Emergency Medical Services; PCP Nurse Practitioner Family; Visit Provider Hospitalist
DX: K56.41 Fecal impaction (principal); F03.90 Unspecified dementia, unspecified severity, without behavioral disturbance, psychotic disturbance, mood disturbance, and anxiety; F39 Unspecified mood [affective] disorder; N40.0 Benign prostatic hyperplasia without lower urinary tract symptoms; K21.9 Gastro-esophageal reflux disease without esophagitis; R10.9 Unspecified abdominal pain; Z79.899 Other long term (current) drug therapy
CPT/HCPCS: 36415; 74177; 80053; 81001; 83735; 85025; 87086; 96374; 99222; 99285; J0696; Q9967

== ENCOUNTER → 2024-06-15 09:57 | Outpatient (BNV) | payer MEDICARE, SELFPAY | PROVIDERS: PCP Nurse Practitioner Family; Visit Provider Radiology Diagnostic Radiology | DX: K59.00 Constipation, unspecified (principal); N40.0 Benign prostatic hyperplasia without lower urinary tract symptoms; N32.89 Other specified disorders of bladder; N28.1 Cyst of kidney, acquired; N20.0 Calculus of kidney; K44.9 Diaphragmatic hernia without obstruction or gangrene | CPT/HCPCS: 74177 ==

== ENCOUNTER → 2024-06-15 16:20 | Outpatient (BNV) | payer MEDICARE, SELFPAY | PROVIDERS: Admitting Provider Student in an Organized Health Care Education/Training Program; Emergency Provider Emergency Medicine Emergency Medical Services; PCP Nurse Practitioner Family; Visit Provider Surgery | DX: K59.04 Chronic idiopathic constipation (principal) | CPT/HCPCS: 99222 ==

== ENCOUNTER → 2024-06-15 16:20 | Outpatient (BNV) | payer MEDICARE, SELFPAY | PROVIDERS: Admitting Provider Student in an Organized Health Care Education/Training Program; Emergency Provider Emergency Medicine Emergency Medical Services; PCP Nurse Practitioner Family; Visit Provider Student in an Organized Health Care Education/Training Program | DX: K56.41 Fecal impaction (principal) | CPT/HCPCS: 99222; 99239 ==

== ENCOUNTER 2024-12-19 14:53 | Emergency (ER) | payer MEDICARE, SELFPAY ==
--- NOTE | ~2024-12-19 | CT_ITS ---
CLINICAL HISTORY: altered mental status CT head without contrast Comparison: None provided Findings: No intra-axial mass, midline shift, hydrocephalus, or acute hemorrhage. Mild atrophy-like change or white matter disease. There is no sinus or mastoid fluid. The orbits are within normal limits. No skull fracture. IMPRESSION: 1. No acute intracranial findings. 2. Mild atrophy-like change or white matter disease. This document has been electronically signed by: Hernán Cavanaugh MD on 12/19/2024 22:08:37
[2024-12-19 15:03] VITALS: BP 128/75; PULSE 79; RESP 18; TEMP 36.4; O2SAT 99; BMI 21.0
--- NOTE | 2024-12-19 15:04 | ED.PSYCH ---
HPI - Psych General Chief Complaint: General Medical Stated Complaint: psych eval, anxious Time Seen by Provider: 12/19/24 19:34 History of Present Illness ED Provider: Jocelyn BAJWA Narrative: The patient is a 74-year-old male with a history of vascular dementia who was brought to the hospital by his because of a change in his behavior recently. According to the patient's , with whom the patient lives, the patient has become increasingly preoccupied with the idea of possible treatments for his dementia. He apparently learned from another person about a medication called Leqembi ([id number]). Apparently this is a medication which would not be appropriate for the patient's condition, vascular dementia. Nevertheless the patient has become fixated on the idea of this medication and has become preoccupied with this medication. This is made the patient irritable and the is concerned about this change in his behavior. The patient may have had some increased urinary frequency recently but not dramatically. The patient denies any discomfort with urination. There has been no fever, sweats, chills. There has been no specific complaint of headache, chest pain, abdominal pain, or other symptoms. The patient is is concerned that the patient is very irritable but has not exhibited any dangerous behavior or wandering behavior. Related Data Home Medications ?Medication ?Instructions ?Recorded ?Confirmed folic acid 1 mg tablet 1 mg PO DAILY 05/06/22 06/15/24 omeprazole 20 mg capsule,delayed 20 mg PO DAILY@0630 05/06/22 06/15/24 release sildenafil 100 mg tablet 100 mg PO DAILY PRN Erectile 05/06/22 06/15/24 Dysfunction bupropion HCl 300 mg 24 hr tablet, 300 mg PO DAILY 06/15/24 06/15/24 extended release lamotrigine 100 mg tablet 100 mg PO DAILY 06/15/24 06/15/24 lamotrigine 25 mg tablet 25 mg PO BID 06/15/24 06/15/24 mirtazapine 15 mg tablet 15 mg PO BEDTIME 06/15/24 06/15/24 quetiapine 100 mg tablet 100 mg PO BID 06/15/24 06/15/24 quetiapine 25 mg tablet 25 mg PO BID PRN anxiety 06/15/24 06/15/24 tamsulosin 0.4 mg capsule 0.4 mg PO BEDTIME 06/15/24 06/15/24 Previous Rx's ?Medication ?Instructions ?Recorded lactulose 10 gram/15 mL oral 10 g (15 mL) PO BEDTIME PRN 06/16/24 solution constipation #1,500 mL cefpodoxime 100 mg tablet 100 mg PO BID #10 tabs 12/19/24 Allergies Allergy/AdvReac Type Severity Reaction Status Date / Time No Known Allergies (No Known Allergy Verified 12/19/24 15:09 Allergies*) Review of Systems Review of Systems: Yes all other systems are reviewed and are negative [facility] Past Medical History Medical History (Updated 12/20/24 @ 00:00 by Morgan Shane) Mood disorder Early onset Alzheimer dementia Social History Social History Household Members: Spouse Patient Tobacco Use Status: Never used Tobacco Smoked in Last 30 Days: No Use of substances other than those prescribed or required for medical reasons: No Advance Directives: No Advance Directives Information Provided: Yes Do you have a plan to hurt others: No Plan service: No Physical Exam Vital Signs: Vital Signs: Last Vital Signs Temp 98.4 F 12/19/24 22:33 Pulse 74 12/19/24 22:33 Resp 16 12/19/24 22:33 BP 134/81 12/19/24 22:33 Pulse Ox 99 12/19/24 22:33 O2 Del Method Room Air 12/19/24 22:33 BMI result Body Mass Index 21.0 Const: Other: the patient is a well-groomed, slim 74-year-old who was awake and alert. He does not seem in acute distress or obviously ill. HEENT: Other: The face is symmetrical. Mucous membranes moist. Eyes: Other: Pupils are round equal, conjunctivae are clear, extraocular movements intact Neck: Neck: Yes normal visual inspection, Yes full ROM, Yes no lymphadenopathy and Yes no JVD Resp: Effort & Inspection: normal respiratory effort Auscultation: clear to auscultation bilaterally Cardio: Rate: regular rate Rhythm: regular rhythm Heart sounds: S1 normal heart sound present and S2 normal heart sound present GI: Other: Abdomen is soft and nontender Skin: Other: The skin is dry and unremarkable Neuro: Other: The patient is a 74-year-old male who was awake and alert. He seems reasonably well oriented but he seems to have a tendency to perseverate on the subjective treatment for his dementia. This seems to be a manifestation of his dementia. The patient seems otherwise neurologically intact. Cranial nerves 2-12 are intact. He moves his extremities symmetrically and appropriately. No focal deficits. Extrem: Other: There is no calf swelling or tenderness. No asymmetry. No peripheral edema. Course Course Course Narrative: This is a rapid medical exam performed by Tia Domínguez NP: Additional HPI, ROS, PE not included below will be deferred to primary provider. Patient is a 74y/o M with dementia presenting to the ED for increased agitation over the past 2 days. /caregiver presents with typed notes stating that his PCP (Shraddha Mcdermott), director online marketing (Dr. Guerin) and PNP Mini Merida are requesting a full medical and psychological evaluation for behavioral and emotional changes. Plan: labs, viral serology and UA to start Medications Administered Discontinued Medications Generic Name Dose Route Start Last Admin Trade Name Freq PRN Reason Stop Dose Admin Cefuroxime Axetil 500 mg 12/19/24 20:08 12/19/24 21:15 Cefuroxime Axetil 500 Mg Tablet PO 12/19/24 20:09 500 mg ONCE ONE Administration Medical Decision Making Medical Decision Making MDM Narrative: The patient is a 74-year-old male who has been diagnosed with vascular dementia. He lives with his . His is concerned because the patient seems to be perseverating about possible treatments for his dementia. There does not seem to have been any episodes of danger. No dangerous wondering. No assaultive behavior towards the . Clinically the patient does not appear acutely ill. His workup in the emergency room was unremarkable With the exception of an abnormal urinalysis. He may have some mild dysuria but no signs of a systemic infection. I am not certain that any change in his behavior can be attributed to A possible UTI.. He was seen by the care team. There is no indication for geriatric psychiatric hospitalization. I think it would be reasonable to put this patient on a trial of antibiotics for a possible UTI given his abnormal urinalysis and possibly some mild UTI symptoms. I think he otherwise seems well enough for discharge. He has multiple outpatient providers and his can stay in touch with his providers. Lab Data 12/19/24 16:01 12/19/24 16:01 Labs: Lab Results 12/19/24 12/19/24 12/19/24 Range/Units 15:54 15:56 16:01 WBC 4.9 (4.8-10.8) X10*3/uL RBC 4.40 L (4.60-5.80) X10*6/uL Hgb 13.2 L (14.0-18.0) g/dl Hct 40.9 L (42.0-52.0) % MCV 93.0 (80.0-98.0) fL MCH 30.0 (27.0-33.0) pg MCHC 32.3 (31.0-36.0) g/dl RDW 13.4 (11.0-16.0) % Plt Count 226 (160-400) X10*3/uL MPV 9.5 (9.4-12.4) fL Immature Gran % (Auto) 0.2 (0.0-0.4) % Neut % (Auto) 53.6 (45-73) % Lymph % (Auto) 30.6 (20-40) % Haralson % (Auto) 11.5 H (2-11) % Eos % (Auto) 2.9 (0-4) % Baso % (Auto) 1.2 (0-2) % Lymph # (Auto) 1.5 (1.2-4.9) X10*3/uL Haralson # (Auto) 0.6 (0.1-1.2) X10*3/uL Eos # (Auto) 0.1 (0.0-0.4) X10*3/uL Baso # (Auto) 0.1 (0.0-0.2) X10*3/uL Abs Immat Gran (auto) 0.01 (0.00-0.03) X10*3/uL Absolute Neuts (auto) 2.6 (2.0-8.3) x10*3/uL Absolute Nucleated RBC 0.000 (0.0-0.012) X10*3/uL Nucleated RBC % (auto) 0.0 (0.0-0.2) /100WBC Sodium 142 (135-145) mmol/L Potassium 3.9 (3.3-5.1) mmol/L Chloride 107 (96-108) mmol/L Carbon Dioxide 29 (22-29) mmol/L Anion Gap 10 L (12-20) BUN 18 H (9-16) mg/dL Creatinine 1.10 (0.5-1.4) mg/dL Estim Creat Clear Calc 60.0 Estimated GFR > 60 Random Glucose 91 (60-115) mg/dL Calcium 8.9 (8.4-10.2) mg/dL Total Bilirubin 0.4 (0.0-1.0) mg/dL AST 23 (5-37) U/L ALT 16 (0-40) U/L Alkaline Phosphatase 57 (39-117) U/L Total Protein 6.5 (6.5-8.0) g/dL Albumin 4.5 (3.5-5.0) g/dL Lipase 17 (8-78) U/L Urine Color Yellow Urine Appearance Turbid Urine pH 6.5 (5.0-9.0) Ur Specific Shelby 1.020 (1.005-1.025) Urine Protein 100 (2+) H (Neg-Trace) mg/dL Urine Glucose (UA) Negative (Negative) mg/dL Urine Ketones Negative (Negative) mg/dL Urine Blood Moderate (2+) H (Negative) Urine Nitrite Positive H (Negative) Ur Leukocyte Esterase Large (3+) H (Negative) Urine RBC 3-5 H (0-2) /HPF Urine WBC >50 H (0-5) /HPF Ur Squamous Epith Cells 0-2 (0-2) /HPF Urine Bacteria 4+ (None Seen) Hyaline Casts 0-2 (0-2) /LPF Urine Opiates Screen Not Detected (Not Detect) Ur Buprenorphine Scrn Not Detected (Not Detect) ng/mL Ur Oxycodone Screen Not Detected (Not Detect) ng/mL Urine Methadone Screen Not Detected (Not Detect) ng/mL Urine Fentanyl Screen Not Detected (Not Detect) Ur Barbiturates Screen Not Detected (Not Detect) Ur Phencyclidine Scrn Not Detected (Not Detect) Ur Amphetamines Screen Not Detected (Not Detect) U Benzodiazepines Scrn Not Detected (Not Detect) Urine Cocaine Screen Not Detected (Not Detect) U Marijuana (THC) Screen Not Detected (Not Detect) Influenza Type A (PCR) NEGATIVE (Negative) Influenza Type B (PCR) NEGATIVE (Negative) RSV RNA Qual (PCR) NEGATIVE (Negative) SARS-CoV-2 RNA (RT-PCR) NEGATIVE (Negative) Discharge Plan Discharge Clinical Impression: Dementia, Behavioral change, Urinary tract infection Patient Disposition: Home, Self-Care Instructions: Urinary Tract Infection in Men (ED), Urinary Tract Infection in Older Adults (ED) Additional Instructions: Your urine testing suggest that you may have a urinary tract infection. Please take the antibiotic, cefpodoxime, 2 times a day for the next 5 days. Please picker the prescription from your pharmacy in the morning and begin the antibiotic in the morning. You received an antibiotic dose here this evening that will cover you until the morning. Please stay in touch with your regular providers for additional advice and follow up. Return to the emergency room if significantly worse. Prescriptions: New cefpodoxime 100 mg tablet 100 mg PO BID Qty: 10 0RF Rx Instructions: must administer with a meal/food No Action sildenafil 100 mg tablet 100 mg PO DAILY PRN (Reason: Erectile Dysfunction) omeprazole 20 mg capsule,delayed release(DR/EC) 20 mg PO DAILY@0630 folic acid 1 mg tablet 1 mg PO DAILY quetiapine 25 mg tablet 25 mg PO BID PRN (Reason: anxiety) quetiapine 100 mg tablet 100 mg PO BID lamotrigine 25 mg tablet 25 mg PO BID Rx Instructions: Taken with 100mg for TTD= 125mg tamsulosin 0.4 mg capsule 0.4 mg PO BEDTIME mirtazapine 15 mg tablet 15 mg PO BEDTIME bupropion HCl 300 mg tablet extended release 24 hr 300 mg PO DAILY lamotrigine 100 mg tablet 100 mg PO DAILY Rx Instructions: Taken with 25mg for TTD= 125mg lactulose 10 gram/15 mL solution 10 g PO BEDTIME PRN (Reason: constipation) Qty: 1500 0RF Referrals: Shraddha cMdermott, ORIENTATION & MOBILITY SPECIALIST [Primary Care Provider, Medical] Interventions: ED Discharge Assessment Last Done: 12/19/24 22:33 Discharge Date/Time: 12/19/24 22:41 Print Language: Telugu
[2024-12-19 16:07] LABS: MANUAL DIFF FLAG NO
[2024-12-19 16:09] LABS: Hematocrit 40.9 % (42.0-52.0); Hemoglobin 13.2 g/dl (14.0-18.0); Imm Gran Abs Auto 0.01 X10*3/uL (0.00-0.03); Imm Gran Pct Auto 0.2 % (0.0-0.4); Lymphocytes Absolute Auto 1.5 X10*3/uL (1.2-4.9); Mean Corpuscular HGB Conc 32.3 g/dl (31.0-36.0); Mean Corpuscular Hemoglobin 30.0 pg (27.0-33.0); Mean Corpuscular Volume 93.0 fL (80.0-98.0); NRBC Abs Auto 0.000 X10*3/uL (0.0-0.012); NRBC Pct Auto 0.0 /100WBC (0.0-0.2); Platelet Count 226 X10*3/uL (160-400); Red Blood Count 4.40 X10*6/uL (4.60-5.80); White Blood Count 4.9 X10*3/uL (4.8-10.8)
[2024-12-19 16:15] LABS: Appearance Urine Turbid; Glucose Urine UA Negative (Negative); PH 6.5 (5.0-9.0); Specific Gravity - Urine 1.020 (1.005-1.025); UMIC TRIGGER UACC YES
[2024-12-19 16:24] LABS: Alanine Aminotransferase 16 U/L (0-40); Albumin Level 4.5 g/dL (3.5-5.0); Alkaline Phosphatase 57 U/L (39-117); Anion Gap 10 (12-20); Aspartate Amino Transferase 23 U/L (5-37); Blood Urea Nitrogen 18 mg/dL (9-16); Calcium 8.9 mg/dL (8.4-10.2); Carbon Dioxide 29 mmol/L (22-29); Chloride 107 mmol/L (96-108); Creatinine Clr Calc Pharmacy 60.0; Estimated Glomerular Filt Rate > 60; Lipase 17 U/L (8-78); Potassium 3.9 mmol/L (3.3-5.1); Sodium 142 mmol/L (135-145); Total Protein 6.5 g/dL (6.5-8.0)
[2024-12-19 16:24] LABS: UACC Culture Trigger YES
[2024-12-19 16:26] LABS: Cannabinoid Screen Urine Not Detected (Not Detect)
[2024-12-19 16:46] LABS: Resp Syncy Virus RNA Qual PCR NEGATIVE (Negative); SARS COV2 PCR INHOUSE NEGATIVE (Negative)
--- OUTSIDE RECORDS SUMMARY | 2024-12-19 18:14 | XMS_ITS | Encounter Summary ---
Author Organization [facility] Address [facility] [address] [address] Phone Care Team Providers Care Fondant Cooker Name Role Phone Shraddha Mcdermott [facility] Primary Care Provider [phone] Dickson Tao MD Unavailable Yulissa Ward MD Unavailable [phone] Denis Guerin DO Unavailable [phone] Shraddha Mcdermott [facility] Unavailable [phone] Encounter Details Date Type Department Care Team (Late st Contact Info) Description 07/08/2023 Procedure Pass [facility], Ct Scan - [address] [address] Social History Tobacco Use Types Packs/Day Years Used Date Smoking Tobacco: Former Cigarettes 1.5 25 Smokeless Tobacco: Never Alcohol Use Standard Drinks/Week Comments No 0 (1 standard drink = 0.6 oz pur e alcohol) Education Answer Date Recorded Are you interested in more education? Not on young e 06/05/2022 Are you concerned about learning? Not on file 06/05/2022 No 06/05/2022 No 06/05/2022 Digital Access Answer Date Recorded No 07/01/2022 No 07/01/2022 Reliable internet access at home? Not on file 07/01/2022 Device with a working camera? Not on file Sex and Gender Information Value Date Recorded Sex Assigned at Male 02/14/2019 1:51 PM EST Legal Sex Male 10:04 PM EDT Gender Identity Male 02/14/2019 1:51 PM EST Sexual Orientation Straight 02/14/2019 1: 51 PM EST documented as of this encounter Functional Status * Calculated C-SSRS Risk Score (Lifetime/Recent) Answer Date of Assessment Author No Risk Indicated 07/08/2023 10:24 AM EDT Sugar French RN * [place] Suicide Severity Rating Scale (Screener/Recent Self-Report) Question Answer Date of Assessment Author 1. Wish to be (Past 1 Month) No 024 10:24 AM EDT Sugar French RN 2. Non-Specific Active Suici moriah Thoughts (Past 1 Month) No 07/08/2023 10:24 AM EDT Sugar French RN 6. Suicidal Behavior (Lifetime) No 10:24 AM EDT Sugar French RN documented as of this encounter Plan of Treatment Upcoming Encounters Date Type Department Care Team (Late st Contact Info) Description 02/15/2025 2:30 PM EST Office Visit [facility] [address] [place] [address] Denis Guerin DO [address] [place] [address] [email or web address] documented as of this encounter Visit Diagnoses Not on filedocumented in this encounter Additional Health Concerns Infection Onset Date Last Indicated Resolved Time MRSA 10/04/2023 12/28/2023 Assessment Noted Time PHQ-9 Depression Total Score: 7 08/31/19 23 1:00 PM EDT PHQ-2 Depression Total Score: 0 08/31/19 23 1:00 PM EDT documented as of this encounter Care Teams Fondant Cooker Relationship Specialty Start Date End Date Shraddha Mcdermott FNP [address] [facility], [address] [place] [address] [email or web address] PCP - General Family Medicine 11/13/20 Dickson Tao MD [address] [place] [address] [address] [place] [address] [email or web address] Insurance Assigned Provider 05/15/23 05/14/24 Yulissa Ward MD [address] [place] [address], [facility] [address] [place] [address] [email or web address] Geriatric Medicine 09/01/22 01/30/24 Denis Guerin DO [address] [place] [address] [email or web address] Ger[facility] Medicine 01/31/24 Shraddha Mcdermott FNP [address] [place] [address] [address] [place] [address] [email or web address] Insurance Assigned Provider 05/14/24 documented as of this encounter Additional Source Comments The information contained in this document represents components of the legal health record. It is not the complete legal health record.[facility]
--- OUTSIDE RECORDS SUMMARY | 2024-12-19 18:14 | XMS_ITS | Encounter Summary ---
Author Organization [facility] Address [facility] [address] [address] Phone Care Team Providers Care Dictaphone Typist Name Role Phone Shraddha Mcdermott [facility] Primary Care Provider [phone] Dickson Tao MD Unavailable Yulissa Ward MD Unavailable [phone] Denis Guerin DO Unavailable [phone] Shraddha Mcdermott [facility] Unavailable [phone] Encounter Details Date Type Department Care Team (Late st Contact Info) Description 08/09/2023 Procedure Pass [facility], [address] [address] Social History Tobacco Use Types Packs/Day Years [...] PM EST documented as of this encounter Plan of Treatment Upcoming Encounters Date Type Department Care Team (Late st Contact Info) Description 02/15/2025 2:30 PM EST Office Visit [facility] [address] [place] [address] Denis Guerin DO [address] [place] [address] [email or web address] documented as of this encounter Visit Diagnoses Not on filedocumented in this encounter Additional Health Concerns Infection Onset Date Last Indicated Resolved Time MRSA 10/04/2023 12/28/2023 Assessment Noted Time PHQ-9 Depression Total Score: 12 024 12:09 PM EDT PHQ-2 Depression Total Score: 0 08/06/19 24 12:09 PM EDT documented as of this encounter Care Teams Dictaphone Typist Relationship Specialty Start Date End Date Sharron Shraddha Posada, CHANNEL DIRECTOR [address] [facility], [facility] [address] [place] [address] [email or web address] PCP - General Family Medicine 11/13/20 Dickson Tao MD [address] [facility], [facility] [address] [place] [address] [email or web address] Insurance Assigned Provider 05/15/23 05/14/24 Yulissa Ward MD [address] [facility], [facility] [address] [place] [address] [email or web address] Geriatric Medicine 09/01/22 01/30/24 Denis Guerin DO [address] [place] [address] [email or web address] 01/31/24 Shraddha Mcdermott FNP [address] [place] [address] [address] [place] [address] [email or web address] Insurance Assigned Provider 05/14/24 documented as of this encounter Additional Source Comments The information contained in this document represents components of the legal health record. It is not the complete legal health record.[facility]
--- OUTSIDE RECORDS SUMMARY | 2024-12-19 18:14 | XMS_ITS | Data Portability ---
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 Neurological exam is essentially normal, with left-sided sleepy other eye chronic. Mental status exam as mild abnormality and delayed memory and is otherwise essentially normal. 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 He had difficulty paying attention in high school. Perhaps a big part of the issue is attention deficit disorder, which she has compensated for, which nevertheless is becoming more prominent later in life. We discussed this. We discussed focus investigation on the differential. He has been on restarted donepezil for a month at the full 10 mg dose without any benefit. We decide that he will stop and see if there is any worsening. We will do the Cognivue testing several weeks after he stops the donepezil. PLAN Jeffrey Snider January 13, 2021 STOP donepezil 10 mg daily as neither have you have seen any change in the working of your mind over the last month on 10 mg daily. Please observe if there is any worsening of your attentiveness or your memory over the days or week after you stop this medication. Cognivue testing of cognition in 6 weeks with follow-up with me on the same day to discuss results. Cognivue is a new FDA approved computerized test, 10 minutes in length, consisting of a set of cognitive probes across cognitive domains that was developed by neurologist/neurosci entist team based on cognitive and neurophysiological data over recent decades. Cognivue probes at the cognitive perceptive boundary and is thus relatively free of subjective biases that exist from various paper and pencil neuropsychology tests of cognitive functioning LABORATORIES: B12 studies, thyroid studies, vitamin D [facility] facility please: Brain MRI without contrast for worsening forgetfulness and attentiveness Follow-up in 6 weeks, with your Gina ramirez Not available 01/13/2021 17:34:43 02/27/2021 02/27/2021 IMPRESSION: --Problems with my mind, with worsening of forgetfulness and remembering faces over the past year noticed by the patient, with worsening over the 4-1/2 years that they have been , more prominently recently, and most prominently in the domain of attention. Donepezil has been stopped without any change in cognitive state observed by patient or . Should symptoms relate to impending degenerative dementia, then he is in all likelihood and the prodrome/mild cognitive impairment stage. Worsening attention deficit disorder becomes more likely as explanation, with this result. However, brain MRI reveals radiological evidence of cerebral amyloid angiopathy which may cause future symptoms relating to degenerative dementia: DATA REVIEWED MRI brain without contrast, per dictation Dr. Evelyn Morataya, [facility] neuroradiology: Scattered foci of susceptibility artifact indicating chronic microhemorrhage, mostly peripheral, which may reflect amyloid angiopathy. Mild Scattered foci of increased T2/flair signal in the subcortical, deep and periventricular white matter which are nonspecific. Mild generalized volume loss. I reviewed imaging on February 28, 2020. I appreciate the microhemorrhages noted by neuroradiology on SWI sequences, including the more prominent one superior to the body of the right lateral ventricle, and the several 5 or 6 by my count, more peripherally, bilaterally in posterior and anterior cerebral locations. We discussed the probable diagnosis of cerebral amyloid angiopathy and the meaning of microhemorrhages. There is an association with dementia. The small number of scattered microhemorrhages are not likely to cause his current symptoms of suboptimal memory functioning. There is a growing amount of data that suggests increase risk of large hemorrhage with any anticoagulation. Therefore if there is a future reason for anticoagulation, this should be taken into account. There is no clear contraindication for antiplatelet treatment, however, should this be indicated in the future. Laboratories and Cognivue testing have not yet occurred. With Cognivue testing, we have been waiting so that donepezil was definitively stopped. We will move forward in these directions that have already been discussed at initial consultation. To review: Neurological exam is essentially normal, with left-sided sleepy other eye chronic. Mental status exam as mild abnormality and delayed memory and is otherwise essentially normal. 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 He had difficulty paying attention in high school. Perhaps a big part of the issue is attention deficit disorder, which she has compensated for, which nevertheless is becoming more prominent later in life. We discussed this. We have decided to focus investigation on the differential. ARTIS Snider February 27, 2021 We are sending by mail instructions on how to see healthcare provider letter to patient on [facility] portal. We are also scheduling: Cognivue testing of cognition in 6 weeks, in our office, with follow-up with me on the same day to discuss results. Cognivue is a new FDA approved computerized test, 10 minutes in length, consisting of a set of cognitive probes across cognitive domains that was developed by neurologist/neurosci entist team based on cognitive and neurophysiological data over recent decades. Cognivue probes at the cognitive perceptive boundary and is thus relatively free of subjective biases that exist from various paper and pencil neuropsychology tests of cognitive functioning LABORATORIES: B12 studies, thyroid studies, vitamin D Please do this blood work at your normal [facility] laboratory that you usually use with primary care Follow-up after studies, with your Gina ramirez Not available 02/27/2021 08:36:06 04/29/2021 04/29/2021 IMPRESSION: --Problems with my mind, with worsening of forgetfulness and remembering faces over the past year noticed by the patient, with worsening over the 4-1/2 years that they have been , more prominently recently, and most prominently in the domain of attention. --probable Radiological diagnosis of cerebral amyloid angiopathy, With microhemorrhages on brain MRI February 21, 2021 -- No benefit of donepezil, found with no change in cognitive state after discontinuation after January 13, 2021 visit DATA REVIEWED LABORATORIES April 28, 2021 Free T4 1.0, TSH 3.2 (PSA 3.14, ordered by PCP I suppose), RPR nonreactive, vitamin B12 391, folate low <2.0, vitamin D low 16. Cognivue interpretation, testing April 29, 2021: score: 76, classification: Cognitively unimpaired Cognivue score of less than or equal to 50: Identifies cognitively impaired subjects; Cognivue score of greater than or equal to 75 to identifies cognitively unimpaired subjects; Cognivue score between these values: intermediate, indeterminate result with no significance Across individual probes, cognitive function is relatively more robust for shape memory; Across individual probes, cognitive function is relatively less robust for motion memory. Adaptive motor control reaction time, 937 ms is significantly slow compared to normative range [330 ms, 800 ms]. This can bias scores downward. Visual salience reaction time 3994 ms, is significantly slowed compared to normative range [420 ms-1800 ms]. This can bias scores downward. Brain degenerative processes can also slow both motor and visual salience reaction time. Clinical correlation is required. Vitamin D deficiency may contribute to cognitive slowing. He agrees to supplementation. Folate deficiency is found during the vitamin B12 panel testing. While folate deficiency does not have independent association with cognitive slowing, supplementation is necessary for other possible issues from this result. He agrees to this supplementation as well. We discussed the Cognivue score. He said well that is good about the classification of cognitively unimpaired. This makes less likely that the primary problems for his symptoms relate degenerative dementia. I had already thought it unlikely as donepezil had not helped n o change to cognitive state after stopping the medication February 27, 2021. I reiterated my opinion that worsened attention deficit is playing a role. He has not yet followed up with healthcare providers to address this. He is noncommittal on my suggestion today to do this. However, brain MRI reveals radiological evidence of cerebral amyloid angiopathy which may cause future symptoms relating to degenerative dementia. This was discussed with patient February 27, 2021 He had trouble accessing my note to patient on the [facility] portal and we went through instructions on how to do that with him and his . To review: Neurological exam is essentially normal, with left-sided sleepy other eye chronic. Mental status exam as mild abnormality and delayed memory and is otherwise essentially normal. 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 He had difficulty paying attention in high school. Perhaps a big part of the issue is attention deficit disorder, which she has compensated for, which nevertheless is becoming more prominent later in life. We discussed this. We have decided to focus investigation on the differential. PLAN Jeffrey Snider April 29, 2021 Folic acid and vitamin D have been low. Vitamin D deficiency especially has correlation with mental slowing. Therefore I am suggesting supplementation as follows: For vitamin D deficiency: A: 8 week vitamin D2 supplementation: Vitamin D2, 50,000 international units, 8 capsules, no refills, one capsule every week for 8 weeks B: At same time, start maintenance Vitamin D3: Vitamin D3, 1000 units once a day, with meals. 1000 unit capsules are available [id number] in your pharmacy. Ask your pharmacist to help you find this vitamin. Folate deficiency: Folic acid (folate) 1.0 mg (1000 g) once daily 30 tablets/11 refills Attention deficit problems can indirectly cause memory problems. You and especially your have noticed that you have ongoing problems with attention deficit in the context of diagnosis since childhood of attention deficit disorder. Please consider working with your healthcare provider for attention deficit for further optimization of treatment of attention deficit, therefore. We have given instructions on how to see healthcare provider letter to patient on [facility] portal to both you and your . Please contact our office if these instructions are not sufficient for you to see our note. Follow-up by telemedicine in 1 month james Not available 04/29/2021 13:35:04 11/10/2021 11/10/2021 IMPRESSION: --Problems with my mind, with worsening of forgetfulness and remembering faces over the past year noticed by the patient, with worsening over the 4-1/2 years that they have been , more prominently recently, and most prominently in the domain of attention. --probable Radiological diagnosis of cerebral amyloid angiopathy, With microhemorrhages on brain MRI February 21, 2021 -- No benefit of donepezil, found with no change in cognitive state after discontinuation after January 13, 2021 visit --Cognivue, April 29, 2021: Score = 76, classification: Cognitively unimpaired; adaptive motor control reaction time and visual resonance reaction time both significantly slowed; functioning relatively better for shape memory, less robust for motion memory. -- April 28, 2021: B12 391, folate low <2.0, vitamin D low 16. --April 28, 2021: Units daily patient and mention that he has ongoing symptoms of attention deficit since childhood. I again focused on my opinion that attention deficit may be playing a role in his memory problems that are his most prominent concern. He cannot say why he has not brought this up with primary care. Today he is ready to treat this. I tell him that primary care is the first place to go as they are already helping him with his mood with Wellbutrin, and I think it is best for the same person to handle attention deficit and mood more generally. That said, if they and primary care wish me to focus on attention deficit treatment I am happy to do this. He understands and will bring it up with primary care when they return to ask questions about his depression given the breakthrough yesterday. Meanwhile, we will recheck folate and vitamin D to see if there has been sufficient supplementation. To review, Cognivue score = 76 reflects a cognitively unimpaired status by that tests standards although it is close to the cutoff for indeterminate (<75). In this context, mimics of dementia are most likely to be playing a role and potential mimics are present with attention deficit, depression, vitamin D deficiency and folate deficiency. Degenerative dementia has also been made unlikely has donepezil has not helped n o change to cognitive state after stopping donepezil February 27, 2021. However, brain MRI reveals radiological evidence of cerebral amyloid angiopathy which may cause future symptoms relating to degenerative dementia. This was discussed with patient February 27, 2021 To review: Neurological exam is essentially normal, with left-sided sleepy other eye chronic. Mental status exam as mild abnormality and delayed memory and is otherwise essentially normal. 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 He had difficulty paying attention in high school. Perhaps a big part of the issue is attention deficit disorder, which she has compensated for, which nevertheless is becoming more prominent later in life. We discussed this. We have decided to focus investigation on the differential. PLAN Jeffrey Snider November 10, 2021 Folic acid and vitamin D have been low. Vitamin D deficiency especially has correlation with mental slowing. Therefore: We will recheck folate as part of B12 panel and recheck vitamin D; CONTINUE maintenance Vitamin D3: Vitamin D3, 1000 units once a day, with meals. CONTINUE Folate deficiency: Folic acid (folate) 1.0 mg (1000 g) once daily 30 tablets/11 refills Attention deficit problems can indirectly cause memory problems. You and especially your have noticed that you have ongoing problems with attention deficit in the context of diagnosis since childhood of attention deficit disorder. Please consider working with your healthcare provider for attention deficit for further optimization of treatment of attention deficit, therefore. We have given instructions on how to see healthcare provider letter to patient on [facility] portal to both you and your . Please contact our office if these instructions are not sufficient for you to see our note. Follow-up by telemedicine in 2 months james Not available 11/10/2021 13:01:22 06/09/2022 06/09/2022 IMPRESSION: --Problems with my mind, with worsening of forgetfulness and remembering faces over the past year noticed by the patient, with worsening over the 4-1/2 years that they have been , more prominently recently, and most prominently in the domain of attention. --probable Radiological diagnosis of cerebral amyloid angiopathy, With microhemorrhages on brain MRI February 21, 2021 -- No benefit of donepezil, found with no change in cognitive state after discontinuation after January 13, 2021 visit --Cognivue, April 29, 2021: Score = 76, classification: Cognitively unimpaired; adaptive motor control reaction time and visual resonance reaction time both significantly slowed; functioning relatively better for shape memory, less robust for motion memory. -- April 28, 2021: B12 391, folate low <2.0, vitamin D low 16. --April 28, 2021: Units daily patient and mention that he has ongoing symptoms of attention deficit since childhood. I again focused on my opinion that attention deficit may be playing a role in his memory problems that are his most prominent concern. He again cannot say why he has not brought this up with primary care. He said for the first time that he was ready to have the attention deficit symptoms treated in November 2021. I continue to think that it is a good idea that treatment for that and Wellbutrin be by the same provider. Wellbutrin is continuing under the management of PCP. We discussed that I therefore continued to defer to PCP for considering treatment of attention deficit. To review, Cognivue score = 76 reflects a cognitively unimpaired status by that tests standards although it is close to the cutoff for indeterminate (<75). In this context, mimics of dementia are most likely to be playing a role and potential mimics are present with attention deficit, depression, vitamin D deficiency and folate deficiency. Degenerative dementia has also been made unlikely has donepezil has not helped n o change to cognitive state after stopping donepezil February 27, 2021. As I am unsure that there is a syndrome of degenerative dementia such as Alzheimer's disease, I am not clear that I have a role at this time. There is increased risk that he will develop vascular dementia in the future given brain MRI results: Radiological evidence of cerebral amyloid angiopathy, as discussed with the patient February 27, 2021. Should his symptoms worsen despite treatment optimization of attention deficit that seems likely present, I am happy to see him in reconsultation for reevaluation. They had forgotten to go to the laboratory for rechecking folate and vitamin D. I will also defer to primary care for further monitoring in those directions. To review: Neurological exam is essentially normal, with left-sided sleepy other eye chronic. Mental status exam as mild abnormality and delayed memory and is otherwise essentially normal. 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 He had difficulty paying attention in high school. Perhaps a big part of the issue is attention deficit disorder, which she has compensated for, which nevertheless is becoming more prominent later in life. We discussed this. We have decided to focus investigation on the differential. PLAN Jeffrey Snider June 09, 2022 Folic acid and vitamin D have been low. Vitamin D deficiency especially has correlation with mental slowing. Therefore: CONTINUE maintenance Vitamin D3: Vitamin D3, 1000 units once a day, with meals. CONTINUE Folate deficiency: Folic acid (folate) 1.0 mg (1000 g) once daily 30 tablets/11 refills Attention deficit problems can indirectly cause memory problems. You and especially your have noticed that you have ongoing problems with attention deficit in the context of diagnosis since childhood of attention deficit disorder. Please consider working with your healthcare provider for attention deficit for further optimization of treatment of attention deficit, therefore. Follow-up as needed as detailed above I have sent on a message to PCP to talk about this over the phone. james Not available 06/09/2022 12:52:51 Plan of Treatment Reminders Order Date Submit Date Provider Last Modified By Organization Details Last Modified Time Details Appointments None recorded. Lab homocystein e, serum or plasma - D51.9 2021 [facility], [address] [place] [address] [place], [id number], 09:28:29 mma (methylmalo leesa acid), serum - D51.9 2021 [facility], [address] [place] [address] [place], [address], 13:40:06 vitamin B12, serum - d51.9 2021 [facility], [address] [place] [address] [place], [address], 03:00:38 folate, serum - d51.9 2021 [facility], [address] [place] [address] [place], [address], 03:00:38 vitamin D, 25-hydroxy, total, serum - E55.9 2021 [facility], [address] [place] [address] [place], [address], 03:00:38 homocystein e, serum or plasma - D51.9 2021 022 [email or web address] 1 [facility], [address] [place] [address] [place], [address], 04/05/202 2 14:05:06 mma (methylmalo leesa acid), serum - D51.9 2021 022 [email or web address] 1 [facility], [address] [place] [address] [place], [address], 2 14:05:06 vitamin D, 25-hydroxy, total, serum - E55.9 2021 022 [email or web address] 1 [facility], [address] [place] [address] [place], [address], 2 14:05:06 TSH, serum or plasma - E07.9 2021 022 [facility], [address] [place] [address] [place], [address], 2 15:30:07 T4, free, serum - E07.9 2021 022 [email or web address] 1 [facility], [address] [place] [address] [place], [address], 2 14:05:06 vitamin B12, serum - D51.9 2021 022 [email or web address] 1 [facility], [address] [place] [address] [place], [address], 2 14:05:07 folate, serum - d51.9 2021 022 [email or web address] 1 [facility], [address] [place] [address] [place], [address], 2 14:05:07 vitamin B12, serum - D51.9 2021 022 [email or web address] 1 [facility], [address] [place] [address] [place], [address], 2 14:05:07 treponema pallidum igg+igm Ab, serum - A53.9 2021 022 [facility], [address] [place] [address] [place], [address], 2 11:26:32 homocystein e, serum or plasma - D51.9 2020 021 [email or web address] 1 [facility], [address] [place] [address] [place], [address], 2 11:39:43 mma (methylmalo leesa acid), serum - D51.9 2020 021 [email or web address] 1 [facility], [address] [place] [address] [place], [address], 2 11:39:43 vitamin D, 25-hydroxy, total, serum - E55.9 2020 021 [email or web address] 1 [facility], [address] [place] [address] [place], [address], 2 11:39:44 TSH, serum or plasma - E07.9 2020 021 [email or web address] 1 [facility], [address] [place] [address] [place], [address], 2 11:39:44 T4, free, serum - E07.9 2020 021 [email or web address] 1 [facility], [address] [place] [address] [place], [address], 2 11:39:44 vitamin B12, serum - D51.9 2020 021 [email or web address] 1 [facility], [address] [place] [address] [place], [address], 2 11:39:44 folate, serum - d51.9 2020 021 [email or web address] 1 [facility], [address] [place] [address] [place], [address], 11:39:44 vitamin B12, serum - D51.9 2020 021 [email or web address] 1 [facility], [address] [place] [address] [place], [address], 11:39:44 treponema pallidum igg+igm Ab, serum - A53.9 2020 021 [email or web address] 1 [facility], [address] [place] [address] [place], [address], 11:39:44 Referral None recorded. Procedures None recorded. Surgeries None recorded. Imaging MRI, brain, w/o contrast - worsening forgetfulne ss and attentivene ss 2020 021 [email or web address] 1 [facility] ([facility]), [address] [place], [address], 12:05:17 Medication Orders folic acid 1 mg tablet 2021 022 [employer] [facility], [address] [place], [address], 13:08:14 Vitamin D2 1,250 mcg (50,000 unit) capsule 2021 022 [facility], [address] [place], [address], 13:08:19 Patient TargetsNo targets recorded. Patient Instructions Encounter Date Encounter Id Patient Instructions Last Modified By Organization Details Last Modified Time 04/29/2021 [id number] Previous medicat ion: February 27, 2021, donepezil discontinued since January 13, without any change in cognitive state observed by patient or . Should symptoms relate to impending degenerative dementia, then he is in all likelihood and the prodrome/mild cognitive impairment stage. Worsening attention deficit disorder becomes more likely as explanation, with this result. PREVIOUS DISCUSSION February 2021: We discussed the probable diagnosis of cerebral amyloid angiopathy and the meaning of microhemorrhages. There is an association with dementia. The small number of scattered microhemorrhages are not likely to cause his current symptoms of suboptimal memory functioning. There is a growing amount of data that suggests increase risk of large hemorrhage with any anticoagulation. Therefore if there is a future reason for anticoagulation, this should be taken into account. There is no clear contraindication for antiplatelet treatment, however, should this be indicated in the future. [email or web address] Not available 04/29/2021 13:35:28 11/10/2021 [id number] Previous medicat ion: February 27, 2021, donepezil discontinued since January 13, without any change in cognitive state observed by patient or . Should symptoms relate to impending degenerative dementia, then he is in all likelihood and the prodrome/mild cognitive impairment stage. Worsening attention deficit disorder becomes more likely as explanation, with this result. PREVIOUS DISCUSSION February 2021: We discussed the probable diagnosis of cerebral amyloid angiopathy and the meaning of microhemorrhages. There is an association with dementia. The small number of scattered microhemorrhages are not likely to cause his current symptoms of suboptimal memory functioning. There is a growing amount of data that suggests increase risk of large hemorrhage with any anticoagulation. Therefore if there is a future reason for anticoagulation, this should be taken into account. There is no clear contraindication for antiplatelet treatment, however, should this be indicated in the future. Chronic condition with exacerbation; prescription medication management [email or web address] Not available 11/10/2021 13:01:37 06/09/2022 [id number] Previous medicat ion: February 27, 2021, donepezil discontinued since January 13, without any change in cognitive state observed by patient or . Should symptoms relate to impending degenerative dementia, then he is in all likelihood and the prodrome/mild cognitive impairment stage. Worsening attention deficit disorder becomes more likely as explanation, with this result. PREVIOUS DISCUSSION February 2021: We discussed the probable diagnosis of cerebral amyloid angiopathy and the meaning of microhemorrhages. There is an association with dementia. The small number of scattered microhemorrhages are not likely to cause his current symptoms of suboptimal memory functioning. There is a growing amount of data that suggests increase risk of large hemorrhage with any anticoagulation. Therefore if there is a future reason for anticoagulation, this should be taken into account. There is no clear contraindication for antiplatelet treatment, however, should this be indicated in the future. Chronic condition with exacerbation; prescription medication management [email or web address] Not available 06/09/2022 12:31:14 Reason for Referral None Reported. Results Created Date Observation Date Name Description Value Unit Range Abnormal Flag Note LastModifiedBy Organization Detail LastModifiedTime 02/21/19 22 02/21/2021 MRI, brain + brain stem, w/o contr ast [facility] Access ion Number : [id number] Patien t Name: Jeffrey Price Record Number : [id number] Date of : 1950 Date of Exam: 2021 Referr ing Physic jana: Zev Tinajero MD Neurol [facility] [address] [address] Exam: MR Brain (C-) CPT 53231 Room Descri ption: [facility] 3.0T HISTOR Y: Mild cognit nelson impair ment. COMPAR ROMULO: None. TECHNI QUE: Multis equenc e multip lanar brain MRI was perfor med withou t contra st. FINDIN GS: BRAIN and EXTRA- AXIAL SPACES : There is mild global promin ence of the ventri cles and sulci reflec ting volume loss, with no focal atroph y demons trated . Mild scatte red foci of nonspe cific T2 prolon gation are presen t in the subcor tical, deep, and perive ntricu lar white matter . There is a focus of suscep tibili ty in the white matter superi or to the body of the right latera l ventri roma likely reflec ting old microh emorrh age, and there are scatte red puncta te periph erally distri buted foci of suscep tibili ty in the bilate ral tempor al, pariet al, and occipi tera lobes reflec ting old microh emorrh ages. Otherw ise, no parenc hymal signal abnorm ality is demons trated in the brain and there is no diffus ion abnorm ality to indica te acute or subacu te infarc tion. There is no midlin e shift or mass effect . There is no extra- axial collec tion. Flow voids are preser flash in the domina nt intrac ranial vessel s. EXTRAC RANIAL SOFT TISSUE S: There is scatte red mucosa l thicke kaela throug hout the parana ev sinuse s with multip le retent ion cysts or polyps in the right maxill rosalia sinus. Orbits are grossl y unrema rkable . BONES: Bone marrow signal is normal . IMPRES ANTHONY: No acute intrac ranial abnorm ality. Mild genera lized volume loss but no defini te focal atroph y. Mild nonspe cific white matter signal change s which most likely reflec t chroni c small vessel diseas e. Scatte red foci of suscep tibili ty indica ting chroni c microh emorrh age, mostly periph erally distri buted, which may reflec t amyloi d angiop athy. Electr onical ly Signed By: Evelyn oliveira MD [email or web address] [facility] ([facility]) [address] [place], [address], 02/25/2021 16:01:54 Result Notes Documentation Provider Name and Address Organization Details Recorded Time Mri, Brain + Brain Stem, W/o Contrast : [facility] Accession Number: [id number] Patient Name: Jeffrey Snider Date of : 1950 Date of Exam: 02-21-2021 Referring Physician: Siddhartha Tinajero MD Neurology- [facility] [address] [place] [address] - [address] [place] [id number] Exam: MR Brain (C-) CPT 60489 Room Description: [facility] 3.0T HISTORY: Mild cognitive impairment. COMPARISON: None. TECHNIQUE: Multisequence multiplanar brain MRI was performed without contrast. FINDINGS: BRAIN and EXTRA-AXIAL SPACES: There is mild global prominence of the ventricles and sulci reflecting volume loss, with no focal atrophy demonstrated. Mild scattered foci of nonspecific T2 prolongation are present in the subcortical, deep, and periventricular white matter. There is a focus of susceptibility in the white matter superior to the body of the right lateral ventricle likely reflecting old microhemorrhage, and there are scattered punctate peripherally distributed foci of susceptibility in the bilateral temporal, parietal, and occipital lobes reflecting old microhemorrhages. Otherwise, no parenchymal signal abnormality is demonstrated in the brain and there is no diffusion abnormality to indicate acute or subacute infarction. There is no midline shift or mass effect. There is no extra-axial collection. Flow voids are preserved in the dominant intracranial vessels. EXTRACRANIAL SOFT TISSUES: There is scattered mucosal thickening throughout the paranasal sinuses with multiple retention cysts or polyps in the right maxillary sinus. Orbits are grossly unremarkable. BONES: Bone marrow signal is normal. IMPRESSION: No acute intracranial abnormality. Mild generalized volume loss but no definite focal atrophy. Mild nonspecific white matter signal changes which most likely reflect chronic small vessel disease. Scattered foci of susceptibility indicating chronic microhemorrhage, mostly peripherally distributed, which may reflect amyloid angiopathy. Electronically Signed [facility]: [facility] 02/25/2021 16:01:54 Procedures Surgical History Date Name Laterality Status Provider Name and Address Organization Details Recorded Time 3 DATA REVIEW completed Siddhartha Tinajero MD [address] [place], [place] [address], [phone], formerly [facility] 06/09/2022 12:31:13 3 Cognivue completed Siddhartha Tinajero MD [address] [place], [place] [address], [address], [facility] 06/09/2022 12:31:13 2 DATA REVIEW completed Siddhartha Tinajero MD [address] [place], [place] [address], [phone], formerly [facility] 11/10/2021 12:34:43 2 Cognivue completed Siddhartha Tinajero MD [address] [place], [place] [address], [phone], formerly [facility] 11/10/2021 12:34:43 2 DATA REVIEW completed Siddhartha Tinajero MD [address] [place], [place] [address], [address], formerly [facility] 04/29/2021 13:31:43 2 Cognivue completed Siddhartha Tinajero MD [address] [place], [place] [address], [address], formerly [facility] 04/29/2021 13:23:43 2 DATA REVIEW completed Siddhartha Tinajero MD [address] [place] [address] [place], [address], formerly [facility] 02/27/2021 08:24:49 Imaging Results None recorded. Procedure Notes None recorded. Medical Equipment None Reported. Allergies No known drug allergies Medications Name Sig Start Date Stop Date Status Note LastModified by Organization Details LastModified Time amoxicillin 500 mg capsule TAKE 2 CAPSULES IMMEDIATE LY, THEN TAKE 1 CAPSULE EVERY 8 HOURS UNTIL FINISHED. active Not Available Not Available No t Available donepezil 5 mg tablet TAKE 1 TABLET BY MOUTH NIGHTLY AT BEDTIME. AFTER 4 WEEKS INCREASE TO 2 TABLETS BY MOUTH AT BEDTIME. 02/27 completed Not Available Not Available Not Available donepezil 10 mg tablet TAKE 1 TABLET BY MOUTH NIGHTLY AT BEDTIME active Not Available Not Available No t Available tramadol 50 mg tablet TAKE 1 TABLET BY MOUTH EVERY 8 HOURS NEEDED FOR PAIN FOR 3 DAYS active Not Available Not Available No t Available sildenafil 100 mg tablet TAKE ONE TABLET BY MOUTH NEEDED ONCE A DAY NEEDED. active Not Available Not Available No t Available amoxicillin 875 mg tablet TAKE ONE TABLET BY MOUTH TWICE A DAY UNTIL FINISHED active Not Available Not Available No t Available lorazepam 0.5 mg tablet TAKE ONE TABLET 0.5 MG TOTAL) BY MOUTH NIGHTLY AT BEDTIME. active Not Available Not Available No t Available tamsulosin 0.4 mg capsule TAKE 1 CAPSULE BY MOUTH DAILY active Not Available Not Available No t Available sertraline 25 mg tablet TAKE ONE TABLET BY MOUTH EVERY DAY active Not Available Not Available No t Available omeprazole 20 mg capsule,del ayed release TAKE ONE CAPSULE BY MOUTH EVERY DAY active Not Available Not Available No t Available folic acid 1 mg tablet TAKE ONE TABLET BY MOUTH EVERY DAY active Not Available Not Available No t Available Vitamin D2 1,250 mcg (50,000 unit) capsule TAKE 1 CAPSULE BY MOUTH EVERY WEEK WITH MEALS. active Not Available Not Available No t Available bupropion HCl XL 150 mg 24 hr tablet, extended release TAKE THREE TABLETS 450 MG TOTAL) BY MOUTH EVERY MORNING. active Not Available Not Available No t Available mirtazapine 7.5 mg tablet TAKE ONE TABLET 7.5 MG TOTAL) BY MOUTH NIGHTLY AT BEDTIME. active Not Available Not Available No t Available melatonin active Not Available Not Shanique ilable Not Available omeprazole active Not Available Not Av ailable Not Available sildenafil active Not Available Not Av ailable Not Available bupropion HCl active Not Available Not Available Not Available donepezil 02/27 completed Not Available Not Available Not Available Vitals Date Recorded Body height Body mass index (BMI) Body weight Respiratory rate Provider Name and Address Organization Details Last Updated DateTime 01/13/2021 187.96 cm 22.6 kg/m2 59900.26 g 12 /min Brandon [facility] 01/20/2021 08:58:59 Social History Question Answer Notes LastModified by Organizat ion Details LastModified Time Tobacco Smoking Status Former Smoker Petra Kierra irvin [facility] 01/13/2021 13:10:02 What Is Your Level Of Caffeine Consumption? Moderate Information not available 01/13/2021 What Is The Highest Grade Or Level Of School You Have Completed Or The Highest Degree You Have Received? [id number] Information not available 01/13/2021 Which Of Your Hands Is Dominant? Right Information not available 01/13/2021 What Is Your Relationship Status? Information not available 01/13/2021 Sex: Unknown Functional Status Question Answer Note LastModified by Organization D etails LastModified Time What is your level of alcohol consumption? None Information not available 01/13/2021 Mental Status None recorded. Family History Relationship Description Onset Age of this Age Resolved Age Notes LastModified by Organization Details LastModified Time Mother Depressive disorder [email or web address] Not available 08:58:58 Medical History Condition Response Claustrophobia N Hospitalizations N Head Trauma/Injury N High Blood Pressure or Hypertension N Thyroid Problems N Brain Tumors N Depression Y Lung Disease N COPD or emphysema N Encephalitis N Vitamin B12 deficiency N PTSD N Heart Attack ([place]) N Spine Problems N Obstructive Sleep Apnea N Alcoholism N Diabetes N Autoimmune disease N Bleeding Disorder N Arthritis N Tuberculosis N Cerebral Palsy N Developmental Problems N Neck Problems N Cancer N Back Problems N Stroke N Asthma N Heartburn, acid reflux, GERD N Vitamin D Deficiency N Epilepsy/Seizures N Bipolar Disorder Y Sleep Disorder N Hepatitis N Aneurysm N Liver Disease N Heart Disease N Headaches N Fibromyalgia N High Cholesterol or Hyperlipidemia N Osteoporosis N Kidney Disease N Past Encounters Encounter ID Performer Location Encounter Start Date Encounter Closed Date Diagnosis/Indication Diagnosis SNOMED-CT Code Diagnosis ICD10 Code Diagnosis IMO Codes Diagnosis Note [id number] Siddhartha Tinajero MD [facility] [address] [place] [address] DEDE HANSENMAUREEN ZAIDI [id number] 01/13/2021 12:54:26 01/14/2021 09:04:51 Mild neurocognitive disorder 229752373 G31.84 [id number] Siddhartha Tinajero MD [facility] [address] [place] [address] DEDE Annalise ABDIMAUREEN ZAIDI [id number] 02/27/2021 07:58:31 02/27/2021 08:55:13 Mild neurocognitive disorder 890061301 G31.84 Cerebral a myloid angiopathy 126561227 I68.0 [id number] Siddhartha Tinajero MD [facility] [address] [place] [address] [place] [id number] 04/29/2021 12:11:10 04/29/2021 17:30:57 Mild neurocognitive disorder 634655001 G31.84 Cerebral a myloid angiopathy 549509232 I68.0 [id number] Siddhartha Tinajero MD [facility] [address] [place] [address] DEDE Annalise HANSENABDIMAUREEN ZAIDI [id number] 11/10/2021 12:23:54 11/10/2021 16:52:07 Mild neurocognitive disorder 880901571 G31.84 Cerebral a myloid angiopathy 755063527 I68.0 [id number] Siddhartha Tinajero MD [facility] [address] [place] [address] [place] [id number] 06/09/2022 12:02:35 06/09/2022 14:43:30 Mild neurocognitive disorder 533055533 G31.84 Cerebral a myloid angiopathy 714052803 I68.0 Health Concerns Section Related Observation LastModified by Organization Detai ls LastModified Time None Recorded Concern Status LastModified by Organization Details LastModified Time None Recorded Advance Directives Directive None Recorded Payers Insurance Date Sequence Insurance Name Policy Number Policy Chavarria Covered Member ID Chavarria Member ID Guarantor Name 06/08/2022 1 [place]ICARE [place]: [employer] Jeffrey Snider [id number] Jeffrey Snider Notes Date Note Type Note Provider Name and Address Organization Details Recorded Time 01/13/2021 text/html He presents for initial neurology consultation for assessment and management of problems with my mind. He is accompanied by his , Gina Snider, who helps with the history and provide support. They have been since ~2016.He says that he is here because of his . He then notes that his has noticed some worsening forgetfulness over the past year and some things are difficult for sure. He might Laetrile down and 5 minutes later not remember where the tool is. He forgets people's names. He notices other problems with his mind but he cannot come up with further examples. He thinks there were problems as much as 2 years ago but it has been in the past year when he has noticed some worsening. It is slow so he has not noticed any difference over the past 6 months. He notices on the other hand that he has never been as creative as in recent times.His says that she notices the problems most prominently in lack of attention he does not pay attention to anything anymore! She also notices the forgetfulness that her highlights. All of these symptoms have been present since the 4-1/2 years that they have been but there has been worsening, especially over the past year.They live together. As soon as they got together, they decided that she would do the finances as he does not get into that stuff. She adds that he has always hated anything administrative. 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 He has had no problems with this part of his life. He gets to sleep early and sleeps deeply according to his but wakes early, around 2 AM. Sometimes he writes at that time. He is not tired during the day and does not take naps.They both do the driving. Both have noticed that he gets a little confused when he drives to the next town , situations where he has had no problems with navigating previously. There have been no accidents. She has always done the cooking. He takes his medicines by himself. They are all lined up in a row so he remembers them in the morning. We review that one of them is donepezil 10 mg daily. His notes that primary care gave him this medication 2 years ago. He stopped after a while as he did not know why he was taking it. He had follow-up with a different primary care, Shraddha Mcdermott and restarted the medication in November at 5 mg for a month and has now been on 10 mg for a month. Neither of them notices any change in its benefit for either his memory or his attention. Siddhartha Tinajero MD [address] [place] [address] [place], [phone], formerly [facility] 01/13/2021 17:38:27 02/27/2021 text/html Follow up of problems with my mind. He is accompanied by his , Gina Snider, who helps with the history and provide support. They have been since ~2015. After January 13, 2021 initial neurology consultation, he stopped donepezil. He has noticed no change in his memory or ability to think. Neither has his . Presenting symptomatology is reviewed from initial neurology consultation January 13, 2021:He says that he is here because of his . He then notes that his has noticed some worsening forgetfulness over the past year and some things are difficult for sure. He might lay something down and 5 minutes later not remember where the tool is. He forgets people's names. He notices other problems with his mind but he cannot come up with further examples. He thinks there were problems as much as 2 years ago but it has been in the past year when he has noticed some worsening. It is slow so he has not noticed any difference over the past 6 months. He notices on the other hand that he has never been as creative as in recent times.His says that she notices the problems most prominently in lack of attention he does not pay attention to anything anymore! She also notices the forgetfulness that her highlights. All of these symptoms have been present since the 4-1/2 years that they have been but there has been worsening, especially over the past year.They live together. As soon as they got together, they decided that she would do the finances as he does not get into that stuff. She adds that he has always hated anything administrative. 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 He has had no problems with this part of his life. He gets to sleep early and sleeps deeply according to his but wakes early, around 2 AM. Sometimes he writes at that time. He is not tired during the day and does not take naps.They both do the driving. Both have noticed that he gets a little confused when he drives to the next town , situations where he has had no problems with navigating previously. There have been no accidents. She has always done the cooking. He takes his medicines by himself. They are all lined up in a row so he remembers them in the morning. We review that one of them is donepezil 10 mg daily. His notes that primary care gave him this medication 2 years ago. He stopped after a while as he did not know why he was taking it. He had follow-up with a different primary care, Shraddha Mcdermott and restarted the medication in November at 5 mg for a month and has now been on 10 mg for a month. Neither of them notices any change in its benefit for either his memory or his attention. Siddhartha Tinajero MD [address] [place] [address], [phone], formerly [facility] 02/27/2021 08:38:05 04/29/2021 text/html Follow up of problems with my mind. He is accompanied by his , Gina Snider, who helps with the history and provide support. They have been since ~2016. Since February 27, 2021 neurology follow-up encounter, neither he nor his noticed any new issues in cognitive functioning. He emphasizes a problem that bothers him especially: He works on projects in his workshop and he might need a tool or a proxy and forget where he keeps that particular tool or hypoxia or whether he even has that tool or the epoxy. Presenting symptomatology is reviewed from initial neurology consultation January 13, 2021:He says that he is here because of his . He then notes that his has noticed some worsening forgetfulness over the past year and some things are difficult for sure. He might lay something down and 5 minutes later not remember where the tool is. He forgets people's names. He notices other problems with his mind but he cannot come up with further examples. He thinks there were problems as much as 2 years ago but it has been in the past year when he has noticed some worsening. It is slow so he has not noticed any difference over the past 6 months. He notices on the other hand that he has never been as creative as in recent times.His says that she notices the problems most prominently in lack of attention he does not pay attention to anything anymore! She also notices the forgetfulness that her highlights. All of these symptoms have been present since the 4-02/09 years that they have been but there has been worsening, especially over the past year.They live together. As soon as they got together, they decided that she would do the finances as he does not get into that stuff. She adds that he has always hated anything administrative. 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 He has had no problems with this part of his life. He gets to sleep early and sleeps deeply according to his but wakes early, around 2 AM. Sometimes he writes at that time. He is not tired during the day and does not take naps.They both do the driving. Both have noticed that he gets a little confused when he drives to the next town , situations where he has had no problems with navigating previously. There have been no accidents. She has always done the cooking. He takes his medicines by himself. They are all lined up in a row so he remembers them in the morning. We review that one of them is donepezil 10 mg daily. His notes that primary care gave him this medication 2 years ago. He stopped after a while as he did not know why he was taking it. He had follow-up with a different primary care, Shraddha Mcdermott and restarted the medication in November at 5 mg for a month and has now been on 10 mg for a month. Neither of them notices any change in its benefit for either his memory or his attention. Siddhartha Tinajero MD [address] [place] [address] Annalise MAUREEN [place], [phone], formerly [facility] 04/29/2021 13:36:26 11/10/2021 text/html Follow up of problems with my mind. He is accompanied by his , Gina Snider, who helps with the history and provide support. They have been since ~2016. After April 29, 2021 neurology follow-up encounter, for folic acid and vitamin D deficiency, he started taking folic acid 1 mg daily and started taking vitamin D two 50,000 units weekly for 8 weeks h e has finished this. He also started vitamin D3 1000 units daily and he continues this.He thinks his memory has gotten worse. For instance, driving here he had to think real hard where [place] was. He did not need help from his to arrive here his destination at our office in [place]. He also had a severe bout of depression yesterday, emerging at waking. He has historically gone for a mile run to wear himself out with good effect. However, it did not help this time. He cried for 2 hours. Then the depression went away by itself. His reminds him the same thing happened a week ago and primary care increased his Wellbutrin from 3 pills to 4 pills. He has not brought up his attention deficit, which she continues to notice, with primary care. Presenting symptomatology is reviewed from initial neurology consultation January 13, 2021:He says that he is here because of his . He then notes that his has noticed some worsening forgetfulness over the past year and some things are difficult for sure. He might lay something down and 5 minutes later not remember where the tool is. He forgets people's names. He notices other problems with his mind but he cannot come up with further examples. He thinks there were problems as much as 2 years ago but it has been in the past year when he has noticed some worsening. It is slow so he has not noticed any difference over the past 6 months. He notices on the other hand that he has never been as creative as in recent times.His says that she notices the problems most prominently in lack of attention he does not pay attention to anything anymore! She also notices the forgetfulness that her highlights. All of these symptoms have been present since the 4-1/2 years that they have been but there has been worsening, especially over the past year.They live together. As soon as they got together, they decided that she would do the finances as he does not get into that stuff. She adds that he has always hated anything administrative. 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 He has had no problems with this part of his life. He gets to sleep early and sleeps deeply according to his but wakes early, around 2 AM. Sometimes he writes at that time. He is not tired during the day and does not take naps.They both do the driving. Both have noticed that he gets a little confused when he drives to the next town , situations where he has had no problems with navigating previously. There have been no accidents. She has always done the cooking. He takes his medicines by himself. They are all lined up in a row so he remembers them in the morning. We review that one of them is donepezil 10 mg daily. His notes that primary care gave him this medication 2 years ago. He stopped after a while as he did not know why he was taking it. He had follow-up with a different primary care, Shraddha Mcdermott and restarted the medication in November at 5 mg for a month and has now been on 10 mg for a month. Neither of them notices any change in its benefit for either his memory or his attention. Siddhartha Tinajero MD [address] [place] [address], [phone], formerly [facility] 11/10/2021 13:02:02 06/09/2022 text/html Follow up of problems with my mind. He is accompanied by his , Gina Snider, who helps with the history and provide support. They have been since ~2016. Since November 10, 2021 neurology follow-up his memory problems feel about the same. His agrees. He gives an example that he will be in his workshop and will keep forgetting where he put his screwdriver. He continues on maintenance vitamin D3 and folate prescribed by me for deficiencies. They have forgotten to do the blood work for rechecking. >>>>>>>>>>>>>>>>Octo fter April 29, 2021 neurology follow-up encounter, for folic acid and vitamin D deficiency, he started taking folic acid 1 mg daily and started taking vitamin D two 50,000 units weekly for 8 weeks h marlyn has finished this. He also started vitamin D3 1000 units daily and he continues this.He thinks his memory has gotten worse. For instance, driving here he had to think real hard where [place] was. He did not need help from his to arrive here his destination at our office in [place]. He also had a severe bout of depression yesterday, emerging at waking. He has historically gone for a mile run to wear himself out with good effect. However, it did not help this time. He cried for 2 hours. Then the depression went away by itself. His reminds him the same thing happened a week ago and primary care increased his Wellbutrin from 3 pills to 4 pills. He has not brought up his attention deficit, which she continues to notice, with primary care. Presenting symptomatology is reviewed from initial neurology consultation January 13, 2021:He says that he is here because of his . He then notes that his has noticed some worsening forgetfulness over the past year and some things are difficult for sure. He might lay something down and 5 minutes later not remember where the tool is. He forgets people's names. He notices other problems with his mind but he cannot come up with further examples. He thinks there were problems as much as 2 years ago but it has been in the past year when he has noticed some worsening. It is slow so he has not noticed any difference over the past 6 months. He notices on the other hand that he has never been as creative as in recent times.His says that she notices the problems most prominently in lack of attention he does not pay attention to anything anymore! She also notices the forgetfulness that her highlights. All of these symptoms have been present since the 05-09/ years that they have been but there has been worsening, especially over the past year.They live together. As soon as they got together, they decided that she would do the finances as he does not get into that stuff. She adds that he has always hated anything administrative. 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 He has had no problems with this part of his life. He gets to sleep early and sleeps deeply according to his but wakes early, around 2 AM. Sometimes he writes at that time. He is not tired during the day and does not take naps.They both do the driving. Both have noticed that he gets a little confused when he drives to the next town , situations where he has had no problems with navigating previously. There have been no accidents. She has always done the cooking. He takes his medicines by himself. They are all lined up in a row so he remembers them in the morning. We review that one of them is donepezil 10 mg daily. His notes that primary care gave him this medication 2 years ago. He stopped after a while as he did not know why he was taking it. He had follow-up with a different primary care, Shraddha Mcdermott and restarted the medication in November at 5 mg for a month and has now been on 10 mg for a month. Neither of them notices any change in its benefit for either his memory or his attention. Siddhartha Tinajero MD [address] [place] [address] [place], [phone], formerly [facility] 06/09/2022 12:52:59
--- OUTSIDE RECORDS SUMMARY | 2024-12-19 18:14 | XMS_ITS | Clinical Summary ---
Author Organization [facility] Address [address] [employer] [address] [address] Phone Care Team Providers Care Eeo Officer Name Role Phone Sharron Shraddha Posada [facility] Primary Care Provider [phone] Denis Guerin DO Unavailable [phone] Shraddha Mcdermott [facility] Unavailable [phone] Allergies No known active allergies Medications lamoTRIgine (LAMICTAL) 100 MG IMMEDIATE release tablet Take 1 tablet by mouth daily. 10/04/2023 Active QUEtiapine (SEROQUEL) 25 MG tablet 50 mg AM and 75 mg PM 10/13/2023 Active mirtazapine (REMERON) 15 MG tabletIndication s:Depression,Oth er insomnia Take 1 tablet (15 mg total) by mouth nightly at bedtime. 30 tablet 1 12/03/2023 Active folic acid (FOLVITE) 1 MG tablet Take 1 tablet (1 mg total) by mouth daily. 90 tablet 3 12/06/2023 Active buPROPion (WELLBUTRIN XL) 150 MG ER 24 hr tablet Take 3 tablets (450 mg total) by mouth every morning. 90 tablet 1 12/06/2023 Active tamsulosin (FLOMAX) 0.4 mg CapIndications:B enign prostatic hyperplasia with urinary frequency Take 1 capsule (0.4 mg total) by mouth daily. 90 capsule 1 02/24/2024 Active omeprazole (PRILOSEC) 20 MG capsule Take 1 capsule (20 mg total) by mouth daily. 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 I spoke with [employer] Deshawn at urgent care in [facility] who called re: concern that Jeffrey has had 5 MRSA UTIs in past year. He reports that Jeffrey had dysuria, flank pain and chills with those, so it does sound like he is getting true UTIs. He does seem to respond well to bactrim. I suggested we start flomax as I am concerned that urine retention could contribute to frequency of UTI. I suggested he try to collect a urine culture when he if feeling in good urinary health to see if he still grows the MRSA chronically. I also recommended he schedule follow up with Dr. Coy in urology who he last saw in 01/2023. Orders: Urine Culture; Future Mild Alzheimer's dementia with mood disturbance 08/09/2023 Encounter for support to caregiver 08/09/2023 Encounter for medication review 08/09/2023 Marijuana use 08/09/2023 Dementia without behavioral disturbance 07/13/19 24 Impaired fasting glucose 12/09/2022 Idiopathic peripheral neuropathy 12/09/2022 Vitamin D deficiency, unspecified 12/09/2022 Attention deficit disorder (ADD) without hyperac tivity 07/22/2022 Cerebral amyloid angiopathy 01/20/2022 Assessment & Plan (01/20/2022 1:12 PM EST): I do wonder if he is now demonstrating more significant clinical evidence of this process whereas his Cognivue testing in April was in normal range. He will schedule a consult with Dr. Ward and I encouraged them to follow up with neurology as well. Benign prostatic hyperplasia with urinary freque ncy 04/29/2021 Assessment & Plan (02/24/2024 12:55 PM EST): Discussed to take flomax with the evening meal and to watch out for dizziness/drowsiness as most common side effect. Orders: tamsulosin (FLOMAX) 0.4 mg Cap; Take 1 capsule (0.4 mg total) by mouth daily. Assessment & Plan (06/24/2021 6:52 AM EDT): He did not start flomax yet, we reviewed the side effect profile again, I reassured him that a large number of patients do tolerate this well and I encouraged him to at least try the medication. Assessment & Plan (04/29/2021 7:13 AM EDT): PSA to be drawn. Urinalysis is normal. We discussed trial of flomax including side effect profile and adminstration. Chronic skin ulcer, limited to breakdown of skin 11/15/2020 Assessment & Plan (11/27/2021 5:29 PM EDT): I advised again that this needs biopsy and he accepted a referral to plastic surgeon today Assessment & Plan (06/24/2021 6:53 AM EDT): He agrees to schedule with dermatology, reviewed I do think this should be checked to rule out BCC. Assessment & Plan (04/29/2021 7:14 AM EDT): Reviewed the skin lesion on his ear appears scabbed however not resolved, again this is in a spot where a facial mask could cause skin breakdown however he reports he rarely ever wears a mask, so I advised he follow up with dermatology as previously discussed. Assessment & Plan (11/15/2020 9:17 PM EDT): The ulceration is on an area of the helix which could be caused by mask use but he does not feel this is contributing because he reports rarely using masks; discussed the nonhealing nature over several months raises concern for a possible skin cancer and I recommended a close follow up with dermatology. Smoking greater than 20 pack years 11/15/2020 Bunion, left foot 11/15/2020 Assessment & Plan (11/15/2020 9:18 PM EDT): Reviewed nature of the deformity and that orthotics may be beneficial, does not seem to warrant surgery at this point; he'll let me know if he would like to see podiatry Memory change 09/21/2018 Assessment & Plan (06/24/2021 6:50 AM EDT): On Cognivue testing he scored as cognitively unimpaired. Assessment & Plan (04/29/2021 7:13 AM EDT): Cognivue testing scheduled tomorrow with Dr. Tinajero's office. Assessment & Plan (11/15/2020 9:14 PM EDT): Recommended consultation with neurology. Reviewed that going off aricept abruptly can cause worsening of cognition and efforts should be made to confirm he continues on this consistently. Gastroesophageal reflux disease without esophagi tis 09/21/2018 Depression 10/28/2017 Assessment & Plan (11/27/2021 5:28 PM EDT): Continue the wellbutrin + low dose zoloft 25 mg. He has an intake with behavioral health scheduled for next week. Assessment & Plan (11/03/2021 10:33 AM EDT): Dramatic sx improvement on the high dose of bupropion 600 mg daily, he'll continue the same at this time. Reviewed this is not a dosage I usually prescribe, I would like to see him back closely in ~2 weeks. Assessment & Plan (11/15/2020 9:16 PM EDT): Controlled, continue the wellbutrin Dysphasia 10/28/2017 Erectile dysfunction 10/28/2017 Other insomnia 10/28/2017 Assessment & Plan (11/27/2021 5:28 PM EDT): He can continue the ativan PRN nightly for now however advised caution with this and ideally I would like to see if he can wean use. Assessment & Plan (11/03/2021 10:34 AM EDT): The ativan was effective, we reviewed this has greater risk for sedation and dependence/abuse, he will try to hold the ativan tonight and use this only if necessary. Osteoarthritis 10/28/2017 Mixed hyperlipidemia 10/28/2017 Resolved Problems Problem Noted Date Diagnosed Date Resolved Date Dyspnea 11/15/2020 06/24/2021 Assessment & Plan (04/29/2021 7:13 AM EDT): At this time, he denies any issues with dyspnea, he did not go for the PFT or chest CT that were ordered. Assessment & Plan (11/15/2020 9:15 PM EDT): Mild sense of dyspnea and chest congestion x 6-12 months in this patient with 20+ pack-year history of cigarette use; I recommended chest CT (would be candidate for screening CT if asymptomatic) and PFT Overactive child 10/28/2017 10/28/2017 Encounters Date Type Department Care Team Description 11/27/2024 2:23 PM EDT - 11/27/2024 11:59 PM EDT Hospital Encounter [facility] [address] [place] [address] Michoacano Coy MD Discharge Disposition: Home or Self Care 11/27/2024 Transcribe Orders [facility] [address] [place] [id number] Michoacano Coy MD Screening for prostate cancer (Primary Dx) from Last 3 Months Immunizations Immunization Administration Dates Next Due COVID-19 (Pre-11/30) Pfizer Vaccine, mRNA, PF 05/30/2020,05/02/2020 COVID-19 (Pre-11/30) Pfizer Vaccine, mRNA, yuridia-sucrose, PF 12/31/2020 INFLUENZA, SPLIT VIRUS, TRIV ALENT W/ PRESERVATIVE IM 12/16/2010 Influenza High-Dose Quadriva lent Preservative Free IM 12/07/2022,11/27/2021,11/13/2020,12/01 Influenza High-Dose Trivalen t Preservative Free IM 02/24/2024,12/14/2018,10/28/2017,01/06 Influenza trivalent preserva tive free intradermal 12/09/2012,12/01/2011 Influenza, whole 12/02/2017 Pneumococcal conjugate PCV13 01/24/2018 Pneumococcal polysaccharide PPSV23 12/14/2018 Tdap 10/23/2022,01/26/2013 Family History Medical History Relation Comments Alzheimer's disease Father Relation Status Comments Father Social History Tobacco Use Types Packs/Day Years Used Date Smoking Tobacco: Former Cigarettes 1.5 25 Smokeless Tobacco: Never Tobacco Cessation:Counseling Given: Not Answered Alcohol Use Standard Drinks/Week Comments No 0 (1 standard drink = 0.6 oz pur e alcohol) Child or Family Care Answer Date Record ed Do you have problems with on e of the following making it difficult for you to work, study, or receive health care? No 09/30/2023 Education Answer Date Recorded Are you interested in more education? Not on young e 06/05/2022 Are you concerned about learning? Not on file 06/05/2022 No 06/05/2022 No 06/05/2022 Food Answer Date Recorded Within the past 6 months we worried whether our food would run out before we got money to buy more. Never True 09/30/2023 Within the past 6 months the food we bought just didn't last and we didn't have enough money to get more. Never True Residential Stability Answer Date Recor ded What is your housing situation today? I have eduardo sing 09/30/2023 How many times have you move d in the past 12 months? Zero (I did not move) 09/30/2023 Paying for Meds Answer Date Recorded Do you have trouble paying for medicines? No 09/30/2023 Paying Utility Bills Answer Date Record ed Do you have trouble paying your heating or elect ricity bill? No 09/30/2023 Transportation Answer Date Recorded Has the lack of transportati on kept you from medical appointments or from getting medications? No 09/30/2023 Digital Access Answer Date Recorded No 09/30/2023 Yes 09/30/2023 Do you have reliable internet access at home? Ye s 09/30/2023 Do you have a device (e.g., phone, tablet, computer) with a working camera? Yes 09/30/2023 Intimate Partner Violence Answer Date R ecorded Are you denied basic needs s uch as food, clothing, or medical care? No 12/28/2023 In the past 12 months have y ou been in a relationship with a person who hurts, threatens, or tries to control you? No 12/28/2023 Are you denied basic needs s uch as food, clothing, or medical care? No 12/28/2023 In the past 12 months have y ou been in a relationship with a person who hurts, threatens, or tries to control you? No 12/28/2023 Sex and Gender Information Value Date Recorded Sex Assigned at Male 02/14/2019 1:51 PM EST Legal Sex Male 10:04 PM EDT Gender Identity Male 02/14/2019 1:51 PM EST Sexual Orientation Straight 02/14/2019 1: 51 PM EST Last Filed Vital Signs Vital Sign Reading Time Taken Comments Blood Pressure 128/78 08/14/2024 2:09 PM EDT Pulse 100 08/14/2024 2:09 PM EDT Temperature 36.2 C (97.1 F) 05/25/2024 10:53 AM EDT Respiratory Rate 16 12/28/2023 4:10 PM EST Oxygen Saturation 97% 08/14/2024 2:09 PM EDT Inhaled Oxygen Concentration - - Weight 79.2 kg (174 lb 9.6 oz) 08/14/2024 2:09 P M EDT Height 188 cm (6' 2.02 ) 05/25/2024 10:53 AM EDT Body Mass Index 22.41 05/25/2024 10:53 AM EDT Plan of Treatment Upcoming Encounters Date Type Department Care Team (Late st Contact Info) Description 02/15/2025 2:30 PM EST Office Visit Telma Bolden [facility] [address] [place] [address] Denis Guerin DO [address] [place] [address] Health Maintenance Due Date Last Done Comments SMOKING Hx and SMOKELESS TOBACCO SCREENING 1961 COLOGUARD 1993 FIT TEST 1993 FOBT 1993 SIGMOIDOSCOPY 1993 VIRTUAL COLONOSCOPY 1993 ZOSTER VACCINES (1 of 2) 1998 RSV VACCINE (1 - 1-dose 75+ series) 09/08/2023 INFLUENZA VACCINE (#1) 2024 , 12/07/2022, 12/07/2022, Additional history exists COVID-19 VACCINE ( season) 2024 12/31/2020, 05/30/2020, 05/02/2020 DEPRESSION SCREENING 08/07/2025 08/07/2024, 08/08/19 25 LIPID PANEL 12/08/2027 12/07/2022, 11/10, 11/27/2021, Additional history exists COLONOSCOPY 12/31/2027 12/30/2022, 11/09, 10/01/2011 COLORECTAL CANCER SCREENING 12/31/2027 Adult Td,Tdap Booster 10/23/2032 10/23/2022, 013 HEPATITIS C SCREENING Completed 05/10/2018, 019 PNEUMOCOCCAL VACCINES (50+ years) Completed 12/14/2018, 01/24/2018 HEPATITIS A VACCINES Aged Out No long er eligible based on patient's age to complete this topic HIB VACCINES Aged Out No longer eligi ble based on patient's age to complete this topic IPV VACCINES Aged Out No longer eligi ble based on patient's age to complete this topic MENINGOCOCCAL VACCINES (ACWY) Aged Out No longer eligible based on patient's age to complete this topic MENINGOCOCCAL VACCINES (B) Aged Out N o longer eligible based on patient's age to complete this topic Medical Devices Not on file Procedures Procedure Name Priority Date/Time Associated Diagnosis Comments PSA (SCREENING) Routine 11/27/2024 2:36 PM EDT Screening for prostate cancer HM COLONOSCOPY FOR RESULT ENTRY ONLY Routine 12/30/2022 11:59 AM EST LIPID PANEL Routine 12/07/2022 9:59 AM EDT Mixed hyperlipidemia HEPATITIS C ANTIBODY, QUALITATIVE Routine 05/10/2018 8:27 AM EDT Screening for condition from Last 3 Months or Most Recently Relevant to Health Maintenance Results * PSA (screening) (11/27/2024 2:36 PM EDT) PSA 3.76 0 - 4.00 ng/mL [facility] Comment: Test Methodology Arianna [id number] Patient results determined by assays using different manufacturers or methods may not be comparable. Blood 11/27/2024 2:36 PM EDT 11/27/2024 2:39 PM EDT us Michoacano Coy MD LAB BLOOD BKR ORDERABLES Final R esult [address] [address] * COLONOSCOPY FOR RESULT ENTRY ONLY (12/30/2022 11:59 AM EST) us Davidson Provider HEALTH MAINTENANCE Final Result * (ABNORMAL) Lipid panel (12/07/2022 9:59 AM EDT) HDL 57 mg/dL [facility] Comment: Interpretation <40 mg/dL: Low HDL cholesterol (major risk factor for CHD) Greater than or equal to 60 mg/dL: High HDL cholesterol ( negative risk factor for CHD) HDL - cholesterol is affected by a number of factors, e.g. smoking, excerise, hormones, sex and age. CHOLESTEROL 234 0 - 240 mg/dL [facility] TRIGLYCERIDES 57 30 - 160 mg/dL [facility] LDL 166(H) 50 - 129 mg/dL [facility] Comment: LDL levels in terms of risk for coronary heart disease: <100 mg/dL: Optimal 100-129 mg/dL: Near or above optimal 130-159 mg/dL: Borderline high 160-189 mg/dL: High >190 mg/dL: Very High CARDIAC RISK RATIO 4.1 3.4 - 5.0 C [facility] Blood 12/07/2022 9:59 AM EDT 12/07/2022 10:00 AM EDT us Shraddha Swetha Mcdermott QUALITY IMPROVEMENT ANALYST LAB BLOOD BKR ORDERABLES Mei l Result [address] [address] * Hepatitis C antibody, qualitative (05/10/2018 8:27 AM EDT) HCV Negative Negative [facility] Comment: This is a screening test and should be confirmed with molecular testing Blood 05/10/2018 8:27 AM EDT 05/10/2018 8:30 AM EDT us Ceferino Llamas MD LAB BLOOD BKR ORDERABLES Final Result Performing Organization Address [facility]/ZIP Co de Phone Number [address] [address] from Last 3 Months or Most Recently Relevant to Health Maintenance Additional Health Concerns Infection Onset Date Last Indicated MRSA 10/04/2023 12/28/2023 Insurance MEDICARE PART A & [place] [address] [id number] MEDICARE PART A & B MEDICARE PART A & B MEDICARE PART A & B MEDICARE PART A & B MEDICARE PART A & B MEDICARE PART A & [place] [address] [place] [id number] MEDICARE PART A & B Member Subscriber Plan / Payer (Ef fective 2013-Present) Name:Jeffrey Snider Member ID:[id number] Relation to Subscriber:Self Name:Jeffrey Snider Subscriber ID:[id number] Payer ID:[id number] Group ID:Not on file Type:Medicare Address: [employer] 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 It is not the complete legal health record.[facility]
--- OUTSIDE RECORDS SUMMARY | 2024-12-19 18:14 | XMS_ITS | Patient Health Record ---
Author Organization [facility] javier Lambert Address [address] [facility] [place] [address] Care Team Providers Care Scraper Operator Name Role Phone Shraddha Mcdermott Primary Care Provider Catalino Elizabeth Unavailable [phone] Allergies No Known Allergies Reason For Referral No Information Medications Medication SIG (Take, Route, Frequency, Duration) Notes Start Date End Date Status Folic Acid Active Mirtazapine 15 MG 1 tablet at bedtime Orally Once a day Active Tamsulosin HCl 0.4 MG 1 capsule Orally O nce a day Active lamoTRIgine 200 MG 1 tablet Orally Once a day Active QUEtiapine Fumarate 200 MG 1 tablet Oral ly Once a day Active buPROPion HCl ER (Smoking Det) 150 MG 1 tablet in the morning Orally Once a day; Duration: 30 day(s) Active Omeprazole 20 MG 1 capsule 30 minutes before morning meal Orally Once a day; Duration: 30 day(s) Active Buprenorphine HCl 150 MCG as directed Bu per Once a day Not-Taking Omeprazole 20 MG as directed Orally Once a day Not-Taking Immunizations Vaccine Route Administration Date Status Comme nts Influenza Unknown 11/09/2023 Administered COVID-19 Pfizer BioNTech Vaccine Unknown 05/30/2020 Adm inistered 1# 05/02/20 Social History Tobacco Use: Social History Observation Description Date Details (start date - stop date) Never Smoker NA - NA Tobacco use other than smoking: Question Answer Notes Are you an other tobacco user? No Tobacco Control (Standard) Question Answer Notes Tobacco use: Nonsmoker AUDIT-C (Standard) Question Answer Notes Did you have a drink containing alcohol in the p ast year? No Points 0 Interpretation Negative Vital Signs Blood pressure diastolic 65 mm Hg 08/15/2024 Height 6 ft 2 in in 08/15/2024 Blood pressure systolic 120 mm Hg 08/15/2024 Weight 175 lbs 08/15/2024 BMI 22.47 kg/m2 08/15/2024 Encounters Encounter Location Date Provider Diagnosis [facility] [address] 08/15/2024 Catalino Whitehead Pain in left foot M79.672 ; Pain in left ankle and joints of left foot M25.572 ; Bursitis of intermetatarsal bursa of left foot M77.52 and Metatarsalgia, left foot M77.[address] [facility] [address] 08/15/2024 Catalino Whitehead Assessments Encounter Date Diagnosis (ICD Code) Assessment Notes Treatment Notes Treatment Clinical Notes Section Notes 08/15/2024 Pain in left ankle and joints of left foot (ICD-10 - M25.572) 08/15/2024 Pain in left foot (ICD-10 - M79.672) 08/15/2024 Bursitis of intermetatarsal bursa of left foot (ICD-10 - M77.52) 08/15/2024 Metatarsalgia, left foot (ICD-10 - M77.42) Plan Of Treatment Pending Test Test Name Order Date X ray : Foot, left 3V 08/15/2024 Insurance Providers Payer Name Payer Address Payer Phone Subscriber Number Group Number Insured Name Patient Relationship to Insured Coverage Start Date Coverage End Date Medicare [employer] [address] [place] [address] [id number] Jeffrey Snider Self - patient is the insured 4 Medical (General) History Medical History History ICD Code Alzheimers disease Anxiety Dementia Depression Bipolar disorder Reflux Surgical History Surgery Date(Month/Year) 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
[2024-12-19 20:12] VITALS: BP 129/82; PULSE 62; RESP 16; TEMP 36.6; O2SAT 99
[2024-12-19 22:05] VITALS: BP 134/81; PULSE 74; RESP 16; TEMP 36.9; O2SAT 99
[2024-12-19 22:33] VITALS: BP 134/81; PULSE 74; RESP 16; TEMP 36.9; O2SAT 99
== END 2024-12-19 22:41 | disposition home or self-care (01) ==
PROVIDERS: Registered Nurse Emergency; Emergency Provider Emergency Medicine; PCP Nurse Practitioner Family
DX: F01.50 Vascular dementia, unspecified severity, without behavioral disturbance, psychotic disturbance, mood disturbance, and anxiety (principal); N39.0 Urinary tract infection, site not specified; R41.82 Altered mental status, unspecified; Z03.818 Encounter for observation for suspected exposure to other biological agents ruled out; F41.9 Anxiety disorder, unspecified; Z79.899 Other long term (current) drug therapy
CPT/HCPCS: 70450; 80053; 80307; 81001; 83690; 85025; 87086; 87088; 87186; 87637; 99284; S9485

== ENCOUNTER → 2024-12-19 21:12 | Outpatient (BNV) | payer MEDICARE, SELFPAY | PROVIDERS: Emergency Provider Emergency Medicine; PCP Nurse Practitioner Family; Visit Provider Student in an Organized Health Care Education/Training Program | DX: R41.82 Altered mental status, unspecified (principal) | CPT/HCPCS: 70450 ==